=== PATIENT | female | born 1995 | race Caucasian/White ===

== ENCOUNTER → 2018-04-02 14:07 | Outpatient (CLI) | payer OTHER, MEDICAID, SELFPAY ==
--- NOTE | 2018-04-02 14:08 | DI.US.S_ITS ---
PROCEDURE: US OB >= 14 WEEKS FETUS INDICATIONS: 20 WEEK ANATOMIC SURVEY OUTSIDE/PRIOR DATING DATA: Last menstrual period (LMP): Unknown. LMP-based estimated date of delivery (ARNULFO): N./A.. First dating scan (date and location): 02/10/2018. Estimated date of delivery (ARNULFO) from first dating scan: 08/13/2018. TECHNIQUE: Real-time scanning was performed of the fetus, with image documentation and biometric measurements. Endovaginal scanning: Not required COMPARISON: None. FINDINGS: General: A single living intrauterine gestation is present. Presentation: Breech. Placenta: Placental position is anterior, without previa. Amniotic fluid index: 13.9 cm, normal range is 5-24 cm. heart rate: 137 beats per minute. Maternal cervical canal: 3.2 cm long. Normal lower limit is 2.5 cm. biometrics: Biparietal diameter: 20 weeks one day Head circumference: 20 weeks 5 days Abdominal circumference: 19 weeks 6 days Femur length: 20 weeks one day Estimated gestational age from initial scan: 21.0 weeks Composite gestational age from present scan: 20 weeks 2 days Estimated weight and percentile: 330 g at the 9th percentile Measurement variability for biometric dating: +/- 7 days from 14 weeks to 15 weeks 6 days gestation, +/- 10 days from 16 weeks to 21 weeks 6 days gestation, +/- 2 weeks from 22 weeks to 27 weeks 6 days gestation, +/- 3 weeks for 28 weeks gestation or later. weight reference: 4500 g or EFW >90/95% is considered macrosomia or large for gestational age. EFW <10% is small for gestational age. EFW 5% or less is considered intra-uterine growth restriction. Anatomic survey: Neuro: Ventricles are non-dilated at less than 10 mm. Cisterna magna is normal at 3-11 mm. Cerebellum is normal in size and morphology. Nuchal skin fold: Normal at less than 6 mm between 14-21 weeks gestational age. Face: Nose and lips, facial profile are normal. Spine: No evidence for spina bifida. Heart: 4-chambered heart and outflow tracts are not well seen Diaphragm: Diaphragm is intact. Stomach: Left-sided stomach is present. Kidneys: No hydronephrosis. Normal is less than 5 mm in 2nd trimester, less than 7 mm in 3rd trimester. Cord: 3-vessel cord has orthotopic insertion. Bladder: Normal in size. Extremities: All 4 extremities identified. IMPRESSION: 1. Single, live intrauterine gestation in breech position showing composite gestational age of 20 weeks 2 days. anatomy appears normal except the 4 chamber heart and cardiac outflow tracts are not well seen. There is mild maternal hydronephrosis in the right kidney. Dictated by: Tyson Nichols M.D. on 04/02/2018 at 15:15 Approved by: Tyson Nichols M.D. on 04/02/2018 at 15:20
== END ==
PROVIDERS: Visit Provider Specialist
DX: Z34.92 Encounter for supervision of normal pregnancy, unspecified, second trimester (principal); Z3A.20 20 weeks gestation of pregnancy
CPT/HCPCS: 76811

== ENCOUNTER → 2018-06-02 11:41 | Outpatient (CLI) | payer OTHER, MEDICAID, SELFPAY ==
[2018-06-02 13:11] LABS: Hematocrit 33.7 % (36-46); Hemoglobin 11.4 g/dL (12.0-16.0)
[2018-06-02 14:01] LABS: GTT (PREG) 1 Hour PP 50gm Dose 138 mg/dL (76-139)
== END ==
PROVIDERS: Visit Provider Specialist
DX: Z3A.29 29 weeks gestation of pregnancy (principal)
CPT/HCPCS: 36415; 82950; 85014; 85018

== ENCOUNTER 2018-07-15 17:34 | Observation (INO) | payer OTHER, MEDICAID, SELFPAY ==
[2018-07-15 19:06] LABS: Bacteria Urine None Seen; RBC Urine None Seen (0-5/HPF)
[2018-07-15 19:08] LABS: Appearance Urine UA CLEAR; Bilirubin Urine UA NEGATIVE (NEGATIVE); Color Urine UA YELLOW; Glucose Urine UA NEGATIVE (Normal); Ketones Urine UA NEGATIVE (NEGATIVE); Leukocyte Esterase Urine UA 1+ (NEGATIVE); Nitrite Urine UA Negative (Negative); Occult Blood Urine UA NEGATIVE (Negative); Protein Urine UA NEGATIVE (Negative); Urobilinogen Urine UA 0.2 E.U./dL (0.2)
[2018-07-15 19:22] LABS: Culture Indicated Urine Cult Not Indicated; Squamous Epithelial Cell Urine 5-10 /HPF; WBC Urine 5-10/HPF (0-5/HPF)
[2018-07-15] MEDS: ZOLPIDEM 5 MG TABLET PO (20:28)
[2018-07-15] MEDS: NIFEdipine 30 MG TAB ER PO (20:28)
== END 2018-07-15 20:30 | disposition home or self-care (01) ==
PROVIDERS: Admitting Provider Specialist; Visit Provider Specialist
DX: O60.03 Preterm labor without delivery, third trimester (principal); Z3A.35 35 weeks gestation of pregnancy
CPT/HCPCS: 59025; 59050; 81001; G0378; G0379

== ENCOUNTER 2018-07-18 18:54 | Observation (INO) | payer OTHER, MEDICAID, SELFPAY ==
[2018-07-18] MEDS: NIFEdipine 30 MG TAB ER PO (19:36)
--- NOTE | 2018-07-19 08:14 | PM.OBTRLD ---
Visit Information Visit Information Date of evaluation: 07/18/18 Primary OB Provider: Su Jimenez Reason for Evaluation: Yes rule out labor Vital Signs Vital Signs: Blood pressure 123/82, pulse of 95, temperature 96.8? Review of Systems Review of Systems Patient comes in complaining of cramping that is been consistent for last 3 days getting somewhat stronger. She was evaluated and treated for possible labor with nifedipine earlier this week. She now also is concerned about leaking of fluid. She has noted good movement. No signs or symptoms of preeclampsia. All systems reviewed & are unremarkable except as noted in HPI and below Evaluation Evaluation Baseline heart rate: 125 Variability: Moderate (11-25) monitor accelerations: Present monitor decelerations: Absent Contraction Frequency (minutes): 5 Uterine Contraction Intensity: Mild Category of Tracing: I Cervical dilation (cm): 0 Cervical effacement (%): 70 station: -2 Non-invasive Membranes Rupture Test: negative Diagnosis, Plan/Disposition Final Diagnosis (1) 35 weeks gestation of : Current Visit: No Status: Acute (2) Encounter for supervision of other normal , third trimester: Current Visit: No Status: Acute Plan/Disposition Plan: Patient received additional doses of nifedipine. Her symptoms improved and she was reassured she is not leaking fluid. She was sent home to be followed up at her routine OB appointment.
[2018-07-19 13:03] LABS: Strep Grp B PCR NEG for Grp B Strep
== END 2018-07-18 20:40 | disposition home or self-care (01) ==
PROVIDERS: Admitting Provider Specialist; Visit Provider Specialist
DX: O60.03 Preterm labor without delivery, third trimester (principal); Z3A.35 35 weeks gestation of pregnancy
CPT/HCPCS: 59025; 59050; 84112; 87653; G0378; G0379

== ENCOUNTER → 2018-07-23 15:46 | Outpatient (CLI) | payer OTHER, MEDICAID, SELFPAY ==
[2018-07-24 12:15] LABS: Strep Grp B PCR NEG for Grp B Strep
== END ==
PROVIDERS: Visit Provider Specialist
DX: Z3A.36 36 weeks gestation of pregnancy (principal)
CPT/HCPCS: 87653

== ENCOUNTER → 2018-07-30 11:01 | Outpatient (CLI) | payer OTHER, MEDICAID, SELFPAY ==
--- NOTE | 2018-07-30 11:35 | PM.OBTRLD ---
Visit Information Visit Information Date of evaluation: 07/30/18 Primary OB Provider: Su Jimenez Reason for Evaluation: Yes non-stress test Comments/Additional reasons for admission: Possible deceleration heard on OB visit Evaluation Evaluation Baseline heart rate: 120 Variability: Marked (>25) monitor accelerations: Present monitor decelerations: Absent Contraction Frequency (minutes): 0 Diagnosis, Plan/Disposition Final Diagnosis (1) Encounter for supervision of other normal , third trimester: Current Visit: No Status: Acute (2) 37 weeks gestation of : Current Visit: Yes Status: Acute Plan/Disposition Plan: Patient was discharged home to follow up at her routine OB appointment
== END | disposition home or self-care (01) ==
LOC: LABOR 11:18 → OB 08-03 07:33
PROVIDERS: Visit Provider Specialist
DX: Z34.83 Encounter for supervision of other normal pregnancy, third trimester (principal); Z3A.37 37 weeks gestation of pregnancy
CPT/HCPCS: 59025; G0378; G0379

== ENCOUNTER 2018-08-03 13:19 | Observation (INO) | payer OTHER, MEDICAID, SELFPAY | END 2018-08-03 16:40 | disposition home or self-care (01) | PROVIDERS: Admitting Provider Specialist; Visit Provider Specialist | DX: O26.23 Pregnancy care for patient with recurrent pregnancy loss, third trimester (principal); Z3A.37 37 weeks gestation of pregnancy | CPT/HCPCS: 59025; 59050; G0378; G0379 ==

== ENCOUNTER 2018-08-06 13:19 | Outpatient (CLI) | payer OTHER, MEDICAID, SELFPAY ==
--- NOTE | 2018-08-06 14:06 | PM.OBTRLD ---
Visit Information Visit Information Date of evaluation: 08/06/18 Reason for Evaluation: Yes non-stress test Comments/Additional reasons for admission: Patient complains of decreased movement Evaluation Evaluation Baseline heart rate: 120 Variability: Moderate (11-25) monitor accelerations: Present monitor decelerations: Absent Category of Tracing: I Diagnosis, Plan/Disposition Final Diagnosis (1) Encounter for supervision of other normal , third trimester: Current Visit: No Status: Acute (2) 38 weeks gestation of : Current Visit: No Status: Acute (3) Decreased movement affecting management of mother, antepartum: Current Visit: No Status: Acute Plan/Disposition Plan: Reactive nonstress test patient reassured. She will keep her follow-up appointment. Precautions reviewed with the patient.
== END 2018-08-06 13:56 | disposition home or self-care (01) ==
LOC: OB 08-10 08:34
PROVIDERS: Visit Provider Specialist
DX: O36.8130 Decreased fetal movements, third trimester, not applicable or unspecified (principal); Z3A.38 38 weeks gestation of pregnancy
CPT/HCPCS: 59025; G0378; G0379

== ENCOUNTER 2018-08-18 06:50 | Inpatient (IN) | payer OTHER, MEDICAID, SELFPAY ==
[2018-08-18] MEDS: LACTATED RINGERS 1,000 ML 100 ML IV ×3 (07:55→18:13)
--- NOTE | 2018-08-18 08:07 | P.HPOB_ITS ---
OB HPI Date/Time Date of admission: 08/18/18 Date Patient Seen: 08/18/18 Time Patient Seen: 07:58 History of Present Condition Chief complaint: induction : 4 Para: 0 Estimated Date of Delivery: 08/18/18 Estimated Gestational Age (weeks): 40 Narrative: Lizzette Boyd is a 23 year old female with mildly elevated blood pressures, mild headaches, prolonged prodromal labor here for induction Indications Indication for induction OB: maternal discomfort History of Present care: good care, initiated at week # (14), number of visits (11) and pounds weight gain (26) Dating criteria: LMP confirmed by 1st trimester US Ultrasounds: normal mid trimester US Obstetrical complications: none Medical complications: respiratory (Asthma) and neurological (Migraines) Preadmission Labs Blood type: O (+) positive -: Antibody screen: negative, GBS status: negative, HBsAG: negative, HIV: negative, HSV 1: negative, HSV 2: negative and RPR/VDLR: negative -: Chlamydia screen: not detected and Gonorrhea screen: not detected -: Rubella: not immune HCAB: negative PAP: Normal Quad screen: Normal Fasting blood glucose: 138 Prior (ies) History: Three SABs Evaluation Evaluation Baseline heart rate: 150 Variability: Moderate (11-25) monitor accelerations: Present monitor decelerations: Absent Contraction Frequency (minutes): 0 Category of Tracing: I Cervical dilation (cm): 3 Cervical effacement (%): 80 station: -2 [facility] Medical History Asthma (Chronic) Migraine headache (Chronic) Meds Home Medications Medication Instructions Recorded Confirmed Type Double Electric Breast Pump #1 ea 06/18/18 06/18/18 Rx omeprazole 20 mg capsule,delayed 20 mg PO DAILY #30 cap 06/21/18 Rx release vits no.124-ferrous fum 1 tab PO DAILY #100 tab 06/21/18 Rx 27 mg iron-folic acid 800 mcg tablet albuterol sulfate HFA 90 1 puff INHALATION Q4-6H PRN #18 06/29/18 Rx mcg/actuation aerosol inhaler gram acetaminophen 300 mg-codeine 30 mg 1 tab PO Q4-6H PRN #30 tab 07/09/18 Rx tablet amoxicillin 500 mg-potassium 1 tab PO BID #20 tab 07/09/18 Rx clavulanate 125 mg tablet zolpidem 5 mg tablet 5 mg PO BEDTIME PRN #7 tab 08/06/18 Rx Allergies Allergy/AdvReac Type Severity Reaction Status Date / Time adhesive Allergy Verified 07/15/18 19:45 azithromycin [From Zithromax] Allergy Verified 07/15/18 19:45 beeswax Allergy Verified 07/15/18 19:45 clindamycin Allergy Verified 07/15/18 19:45 latex Allergy Verified 07/15/18 19:45 Review of Systems Review of Systems Patient complains of mild headache but no scotomata or epigastric pain. Good movement. No rupture of membranes. Irregular contractions All systems reviewed & are unremarkable except as noted in HPI and below Exam Vital Signs (past 8 hours): Blood pressure 124/71, pulse of 100, temperature 36.2? Narrative Exam Narrative: HEENT exam within normal limits. Lungs are clear to auscultation percussion. Heart is regular rate and rhythm no S3-S4 or murmurs. Abdomen is gravid, nontender. Extremities with trace edema and nontender. DTRs are normal. Assessment and Plan (1) 40 weeks gestation of : Current visit: Yes Status: Acute Patient is at term, uncomfortable, mild increase in blood pressure who is here for induction with Pitocin. Patient is going to request an epidural. She is group B strep negative. She is rubella nonimmune so needs a rubella vaccine prior to discharge.
[2018-08-18] MEDS: OXYTOCIN PREMIX 30 UNIT/500 ML PLAST..BAG IV (08:15)
[2018-08-18 08:29] VITALS: BP 124/71
[2018-08-18 08:41] LABS: Add Manual Diff / Slide Review NO; Basophils Percent Auto 0.9 % (0-2); Eosinophils Percent Auto 0.5 % (2-4); Hematocrit 35.2 % (36-46); Hemoglobin 11.8 g/dL (12.0-16.0); Lymphocytes Percent Auto 21.1 % (25-40); Mean Corpuscular HGB Conc 33.4 % (30-36); Mean Corpuscular Hemoglobin 28.9 PG (26-34); Mean Corpuscular Volume 86.6 fL (80-100); Monocytes Percent Auto 3.1 % (3-14); Neutrophils Absolute Auto 7300 /uL (3000-5900); Neutrophils Percent Auto 74.4 % (50-75); Platelet Count 227 X10^3/uL (150-400); Red Blood Cell Count 4.06 X10^6/uL (4.0-5.2); Red Cell Distribution Width 14.1 % (11.6-14.8); White Blood Cell Count 9.8 X10^3/uL (4.5-11.0)
--- NOTE | 2018-08-18 20:43 | PM.OBPRVD ---
Delivery date: 08/18/18 Intrapartal events: None Induction method: per pitocin protocol Delivery monitor: external FHT and external uterine Route of delivery: Laceration description: Periurethral - 1st Degree Estimated blood loss (mL): 200 Anesthesia type: Epidural Narrative: Patient arrived on Labor and delivery for Pitocin induction. Maternal discomfort and slightly increased blood pressure. Pitocin was begun and she received an epidural catheter for pain control. She was a run for clear fluid. heart rate category 1 to category 2 throughout labor. Patient delivered spontaneously, over an intact perineum. There was a compound presentation and a nuchal cord. The viable male infant was placed on maternal abdomen and after the cord stopped pulsating the cord was clamped cut and cord bloods obtained. The placenta delivered spontaneously, intact, with 3 vessels. There were no cervical or vaginal tears. There was a first-degree right periurethral tear that did not require suturing. Baby weighed 6 lb 7 oz, 2926 g Baby 1: Infant gender: Male Presentation: vertex position: Right Occiput Anterior Placenta delivery description: Spontaneous cord vessel description: Nuchal Cord score (1 min): 8 score (5 min): 9 Plan for aftercare: Routine care
[2018-08-19 07:18] LABS: Hematocrit 33.2 % (36-46)
--- NOTE | 2018-08-19 08:07 | P.PNOB_ITS ---
Subjective - OB Interval history: day 1. Patient denies headache, scotomata and epigastric pain. She is ambulatory in urinating without difficulty. Patient comments: pain well controlled baby status: doing well feeding status: exclusively breast feeding Date Patient Seen: 08/19/18 Time Patient Seen: 08:05 Exam Vital Signs (past 8 hours): Blood pressure 117/71, pulse of 111, temperature 97.4? Narrative Exam Narrative: Abdomen was soft, nontender. Uterus is firm, at U, nontender. Mild lochia. Extremities without edema and nontender. Objective Labs Result Diagrams: 08/19/18 06:35 Labs: Laboratory Results - last 24 hr 08/18/18 08/18/18 08/19/18 07:54 07:54 06:35 WBC 9.8 RBC 4.06 Hgb 11.8 L 11.0 L Hct 35.2 L 33.2 L MCV 86.6 MCH 28.9 MCHC 33.4 RDW 14.1 Plt Count 227 Neut % (Auto) 74.4 Lymph % (Auto) 21.1 L [place] % (Auto) 3.1 Eos % (Auto) 0.5 L Baso % (Auto) 0.9 Neut # (Auto) 7300 H Blood Type O Positive Antibody Screen Negative Assessment & Plan (1) 40 weeks gestation of : Status: Acute Current Visit: Yes (2) Vaginal delivery: Status: Acute Current Visit: Yes Plan day: 1 plan OB: routine care Time Spent With Patient Total time spent is greater than 50% in coordination of care (as documented) at patient's floor/unit and/or counseling patient: less than 15 minutes
[2018-08-19] MEDS: DOCUSATE 250 MG CAPSULE PO (09:04)
[2018-08-19] MEDS: LANOLIN OINT 7 GM 1 APPLIC TOP (09:05)
[2018-08-19 09:35] VITALS: BP 117/70; PULSE 77; RESP 16; TEMP 37.1
--- NOTE | 2018-08-19 17:12 | PM.OBDS.1 ---
Discharge Providers Date of admission: 08/18/18 06:50 Consults: 08/18/18 07:03 Consult to Anesthesiology Urgent Comment: Consulting Provider: Anesthesiologist Reason for consultation: epidural Has provider been notified: No 08/18/18 20:55 Consult to [employer] Routine Comment: Discharge provider: Su Jimenez MD Discharge Date: 08/19/18 Summary Date Patient Seen: 08/19/18 Time Patient Seen: 17:14 Hospital Course: Patient arrived on Labor and delivery for induction. She was started on Pitocin. She received an epidural catheter for pain control. She had a spontaneous vaginal delivery without tears. She did well she had no signs or symptoms of preeclampsia. Her abdomen was soft, nontender. Uterus was firm, at U, nontender. Mild lochia. Extremities without edema and nontender. Peripartum Data Infant Delivery Method: Natural Vaginal Laceration description: None Procedures: Pitocin induction, epidural catheter, spontaneous vaginal delivery complications: none 1: Gender: Male Disposition of : home Discharge Diagnosis (1) 40 weeks gestation of : Status: Acute (2) Vaginal delivery: Status: Acute Status at Discharge Functional status at discharge: independent ambulation Overall status at discharge: patient is progressing back to baseline Time Spent with Patient Total time spent providing and/or coordinating discharge services: Less than 30 minutes Objective Labs Result Diagrams: 08/19/18 06:35 Labs: Laboratory Results - last 24 hr 08/19/18 06:35 Hgb 11.0 L Hct 33.2 L Discharge Plan Discharge Plan Patient Disposition: Home Discharge Med Rec/Prescriptions Prescriptions: No Action vit no.[id number] [ Vitamin] 27 mg iron- 800 mcg tablet 1 tab PO DAILY Qty: 100 RF: 3 Double Electric Breast Pump Qty: 1 RF: 0 albuterol sulfate 90 mcg/actuation HFA aerosol inhaler 1 puff INHALATION Q4-6H PRN (Reason: asthma) Qty: 18 RF: 1 Follow up/Referrals: Su Jimenez MD [Physician] - 09/29/18 12:00 am (needs time still) Provider Discharge Instructions Diet: Regular Skin/Wound/Dressing Care Report to your healthcare provider any signs of infection, such as:: chills, fever and increased pain Visit Report/Discharge Packet Visit Report Forms: Stroke Signs & Symptoms Discharge Data Attending Provider: Su Jimenez Admit Date/Time: 08/18/18 06:50
[2018-08-19 17:54] VITALS: BP 112/62; PULSE 89; RESP 16; TEMP 36.9
[2018-08-19] MEDS: MEASLES,MUMPS,RUBELLA VACC/PF 0.5 ML VIAL SUBCUT (18:25)
[2018-08-19 19:50] VITALS: BP 112/62; PULSE 89; RESP 16; TEMP 36.9
== END 2018-08-19 18:45 | disposition home or self-care (01) | DRG 560 ==
PROVIDERS: Admitting Provider Specialist; Visit Provider Specialist
DX: O26.813 Pregnancy related exhaustion and fatigue, third trimester (principal); Z3A.40 40 weeks gestation of pregnancy; Z37.0 Single live birth; O69.81X0 Labor and delivery complicated by cord around neck, without compression, not applicable or unspecified; O32.6XX0 Maternal care for compound presentation, not applicable or unspecified; O71.82 Other specified trauma to perineum and vulva
CPT/HCPCS: 01967; 36415; 59050; 59409; 85014; 85018; 85025; 86850; 86900; 86901; G0379; J2590; J3010

== ENCOUNTER 2019-02-04 12:23 | Emergency (ER) | payer OTHER, MEDICAID, SELFPAY ==
[2019-02-04 12:28] VITALS: BP 121/70; PULSE 76; RESP 18; TEMP 36.7; O2SAT 100
[2019-02-04] MEDS: IBUPROFEN 400 MG TABLET 800 MG PO (12:36)
--- NOTE | 2019-02-04 15:48 | ED_ITS ---
HPI - Skin/Abscess/Foreign Bdy General Chief complaint: Skin/Abscess/Foreign Body Stated complaint: mastitis needed drained Time Seen by Provider: 02/04/19 15:47 Source: patient and family (/mother) Mode of arrival: ambulatory Limitations: no limitations History of Present Illness HPI narrative: 23-year-old female comes to the emergency department with complaint of mastitis and concern for abscess. Patient has breast-feeding but switched to exclusive pumping of breast milk about 3 weeks ago. Patient dev eloped mastitis in the last week, she was started on dicloxacillin and she did not really have any improvement of symptoms. She tried to get into contact with her OBGYN again and was referred to the ER if she was not improving. She is not having fevers lately. Pain has been increasing. She has got increasing darkness and redness over the area of mastitis. She has had very little output while pumping breast milk. Patient denies any other past medical history other than a prior episode of mastitis about 3 months ago that caused her to be admitted to [facility]. She was on IV antibiotics and resolved after several hospital day stay. She does not know the name. Patient is al lergic to clindamycin and gets hives as well as azithromycin. Related Data Home Medications Medication Instructions Recorded Confirmed etonogestrel [Nexplanon] 68 mg SUBDERMAL .ONCE 02/04/19 02/04/19 Previous Rx's Medication Instructions Recorded Double Electric Breast Pump #1 ea 06/18/18 albuterol sulfate HFA 90 1 puff INHALATION Q4-6H PRN #18 06/29/18 mcg/actuation aerosol inhaler gram ibuprofen 600 mg tablet 600 mg PO Q6H PRN #90 tab 09/07/18 dicloxacillin 500 mg capsule 500 mg PO QID #40 cap 01/31/19 oxycodone 5 mg PO Q4-6H PRN #15 tab 02/04/19 sulfamethoxazole-trimethoprim 1 tab PO BID #20 tab 02/04/19 [Bactrim DS] Allergies Allergy/AdvReac Type Severity Reaction Status Date / Time adhesive Allergy Mild Hives Verified 02/04/19 12:33 azithromycin [From Zithromax] Allergy Mild Hives Verified 02/04/19 12:33 beeswax Allergy Mild Hives Verified 02/04/19 12:33 clindamycin Allergy Mild Hives Verified 02/04/19 12:33 latex Allergy Hives Verified 02/04/19 12:33 Review of Systems Review of Systems ROS Unobtainable: All systems reviewed & are unremarkable except as noted in HPI and below Constitutional Reports chills, Denies fever(s), Denies lethargy and Denies weakness Cardiovascular Reports chest pain (Breast pain), Denies dyspnea and Denies dyspnea on exertion Respiratory Denies cough, Denies dyspnea, Denies dyspnea on exertion and Denies wheezing Gastrointestinal Gastrointestinal: Denies abdominal pain, Denies change in bowel habits, Denies diarrhea, Denies nausea and Denies vomiting Integumentary/Breasts Reports as per HPI, Reports breast swelling, Reports breast skin changes, Reports breast pain, Denies breast mass and Reports erythema Neurologic Denies weakness Allergic/Immunologic Denies wheezing [facility] Medical History Asthma (Chronic) Migraine headache (Chronic) Social History Smoking Status: Never smoker Social History Smoking Status: Never smoker Exam Narrative Exam Narrative: GENERAL: Alert and oriented x three, well-nourished, well- appearing female in moderate distress HEENT: Head normocephalic, atraumatic, EOMI, pupils reactive, face symmetric, moist mucous membranes NECK: Supple, full range of motion CARDIOVASCULAR: Regular rate and rhythm without murmurs, rubs or gallops. RESPIRATORY: Breath sounds equal bilaterally, no wheezes rales or rhonchi. ABDOMEN: Soft, nontender. Normoactive bowel sounds all 4 quadrants. No guarding or rebound, rigidity, no mass : No CVA tenderness EXTREMITIES: Normal range of motion, no clubbing or edema. Neurovascularly intact NEUROLOGICAL: Cranial nerves II through XII grossly intact. Moving all extremities SKIN: Warm, dry, no petechiae, patient's right breast has a problem 5 cm area of erythema with a centralized location about 3 cm that is very soft and fluctuant. There is no montgomery for clear area of drainage. Patient is quite tender. Initial Vital Signs Initial Vital Signs: Vital Signs Temperature 98.1 F 02/04/19 12:28 Pulse Rate 76 02/04/19 12:28 Respiratory Rate 18 02/04/19 12:28 Blood Pressure 121/70 02/04/19 12:28 Pulse Oximetry 100 02/04/19 12:28 Course Orders Ordered: ED Orders 02/04/19 15:45 Basic Metabolic Panel Stat Bilirubin Total Stat Complete Blood Count AUTO DIFF Stat Lactate (Lactic Acid) Stat Partial Thromboplastin Time Stat Prothrombin Time INR Stat 02/04/19 15:57 US breast RT limited Stat 02/04/19 16:37 Blood Culture Stat 02/04/19 18:09 US breast asp Stat 02/04/19 19:32 Wound Culture and Gram Stain Stat Discontinued Medications Sodium Chloride (Normal Saline 0.9%) 1,000 mls @ 1,000 mls/hr IV BOLUS PRN PRN Reason: Fluid replacement Last Infusion: 02/04/19 18:30 Dose: 0 mls/hr Admin: 02/04/19 16:33 Dose: 1,000 mls/hr Vancomycin HCl 1,250 mg/ (Sodium Chloride) 250 mls @ 250 mls/hr IV NOW ONE Stop: 02/04/19 16:05 Last Infusion: 02/04/19 18:01 Dose: 0 mls/hr Admin: 02/04/19 16:37 Dose: 250 mls/hr Ibuprofen (Advil) 800 mg PO NOW ONE Stop: 02/04/19 12:35 Last Admin: 02/04/19 12:36 Dose: 800 mg Ketorolac Tromethamine (Toradol) 30 mg IV NOW ONE Stop: 02/04/19 15:59 Last Admin: 02/04/19 16:34 Dose: 30 mg Oxycodone/Acetaminophen (Percocet 5/325) 1 tab PO NOW ONE Stop: 02/04/19 19:38 Last Admin: 02/04/19 19:39 Dose: 1 tab Vital Signs - 8 hr 02/04/19 12:28 02/04/19 16:46 02/04/19 18:54 Temperature 98.1 F Pulse Rate 76 75 79 Respiratory Rate 18 17 18 Blood Pressure 121/70 Blood Pressure [Right Arm] 114/62 112/68 Pulse Oximetry 100 97 97 MDM - Skin/Abscess/Foreign Bdy Lab Data Attestation: I reviewed the patient's lab results. Result diagrams: 02/04/19 15:45 02/04/19 15:45 Lab Results 02/04/19 02/04/19 02/04/19 Range/Units 15:45 15:45 15:45 WBC 9.2 (4.5-11.0) X10^3/uL RBC 4.52 (4.0-5.2) X10^6/uL Hgb 11.8 L (12.0-16.0) g/dL Hct 35.9 L (36-46) % MCV 79.4 L (80-100) fL MCH 26.0 (26-34) PG MCHC 32.8 (30-36) % RDW 14.2 (11.6-14.8) % Plt Count 340 (150-400) X10^3/uL Neut % (Auto) 60.9 (50-75) % Lymph % (Auto) 30.0 (25-40) % Kent % (Auto) 6.7 (3-14) % Eos % (Auto) 1.7 L (2-4) % Baso % (Auto) 0.7 (0-2) % Neut # (Auto) 5600 (6166-0963) /uL Lymph # (Auto) 2800 (0075-0435) /uL Kent # (Auto) 600 (0-900) /uL Eos # (Auto) 200 (0-450) /uL Baso # (Auto) 100 (0-100) /uL PT 12.0 (10.1-12.7) SECONDS INR 1.0 (0.9-1.3) APTT 31 (26.4-36.2) SECONDS Sodium 139 (137-145) mmol/L Potassium 3.8 (3.4-5.1) mmol/L Chloride 102 (98-107) mmol/L Carbon Dioxide 28 (22-32) mmol/L BUN 11 (7-17) mg/dL Creatinine 0.60 (0.52-1.04) mg/dL Estimated GFR > 60.0 (>60) mL/min BUN/Creatinine Ratio 18.3 (6-22) Glucose 94 (70-100) mg/dL Lactate (0.7-2.1) mmol/L Calcium 9.5 (8.4-10.2) mg/dL Total Bilirubin 0.2 (0.2-1.3) mg/dL 02/04/19 Range/Units 15:45 WBC (4.5-11.0) X10^3/uL RBC (4.0-5.2) X10^6/uL Hgb (12.0-16.0) g/dL Hct (36-46) % MCV (80-100) fL MCH (26-34) PG MCHC (30-36) % RDW (11.6-14.8) % Plt Count (150-400) X10^3/uL Neut % (Auto) (50-75) % Lymph % (Auto) (25-40) % Kent % (Auto) (3-14) % Eos % (Auto) (2-4) % Baso % (Auto) (0-2) % Neut # (Auto) (4347-3669) /uL Lymph # (Auto) (5586-2202) /uL Kent # (Auto) (0-900) /uL Eos # (Auto) (0-450) /uL Baso # (Auto) (0-100) /uL PT (10.1-12.7) SECONDS INR (0.9-1.3) APTT (26.4-36.2) SECONDS Sodium (137-145) mmol/L Potassium (3.4-5.1) mmol/L Chloride (98-107) mmol/L Carbon Dioxide (22-32) mmol/L BUN (7-17) mg/dL Creatinine (0.52-1.04) mg/dL Estimated GFR (>60) mL/min BUN/Creatinine Ratio (6-22) Glucose (70-100) mg/dL Lactate 0.9 (0.7-2.1) mmol/L Calcium (8.4-10.2) mg/dL Total Bilirubin (0.2-1.3) mg/dL Imaging Data US right breast: Radiologist's impression: [address] [address] Ultrasound Report Signed Patient: Lizzette Boyd MARY ALICE#: [id number] : 1995Acct:[id number] Age/Sex: 23 / FDate of Service: 02/04/19 Loc: ED Accession Number: [id number] Procedure: US breast RT limited Ordering Provider: Lois Alfredo D.O. PROCEDURE: US BREAST RT LIMITED COMPARISON: None. INDICATIONS: Mastitis with concern for abscess RU, mom pumping breastmilk TECHNIQUE: Targeted real time mcqueen scale and Doppler ultrasound of the right breast near 10:00 position was performed, which included the area of clinical concern indicated by the patient as being erythematous and tender to palpation. FINDINGS: There is an underlying 4.9 x 4.8 x 2.2 cm irregular indistinct fluid collection with mobile internal echogenic debris in the right breast at 10:00 position 5 cm from nipple, correlating with the site of patient reported tenderness. This fluid collection demonstrates mild peripheral vascularity on Doppler ultrasound and extension to the overlying skin surface. IMPRESSION: 4.9 cm irregular fluid collection in the right breast at 10:00 position 5 cm fr om the nipple concerning for developing abscess/phlegmon. Clinical correlation recommended. An ultrasound-guided drainage can be performed if clinically indicated. These findings and recommendations were discussed with the referring provider Dr. Lois Alfredo by [facility] radiologist Dr. Teo Dasilva at approximately 5:30 PM by phone and by [facility] radiologist Dr. Chandan Chen at approximately 6:00 PM on 02/04/2019 in person. Dictated by: Chandan Chen M.D. on 02/04/2019 at 18:17 Approved by: Chandan Chen M.D. on 02/04/2019 at 18:26 MDM Narrative Medical decision making narrative: Spoke with Dr. Jimenez, recommends surgery to evaluate. Dr. Marion consulted, recommends radiology IR if available, could aspirate, antibiotics and follow up. Spoke with Dr. Dasilva from radiology. He discussed with Dr. hCen who does breast radiology. Dr. Chen came by department and evaluated patient and did US guided aspiration. Only small amount mostly of bloody fluid. Even with the largest needle and he felt that it was more phlegmon than true abscess at this time but would suggest patient continues warm compress and antibiotics and likely in the next week could have repeat ultrasound and if improving would be able to attempt aspiration again. He would recommend serial aspirations as the area becomes more abscess like. Patient could either do this through Dr. Jimenez who could order ultrasounds for her or through the breast Center. I gave patient both options and give her the contact information for the breast center. I did ask her to return in 12 hours for recheck. We reviewed her medications, plan for her to continue to pump on both sides. Her infant does not like the milk from that side and told that she can't up it if she prefers. I did also review all of her medications in infant risk INR appropriate for . We also discussed if she is taking oxycodone to make sure that she is with someone or monitored so that she does not fall asleep with the infant. The patient's mother is also at bedside and all this information was shared with her also. Discharge Plan Departure Patient Disposition: Home Clinical Impression: Abscess of right breast, Mastitis Discharge Date/Time: 02/04/19 19:55 Interventions: ED Discharge Assessment Last Done: 02/04/19 19:46 Activity Restrictions/Additional Instructions: Return in 12 hours for recheck and possible repeat dose of IV antibiotics. Follow-up with the Breast Center on Thursday, call for an appointment. The number is [phone] or [phone], it is located in [place]. Stopped your current antibiotic dicloxacillin and start Bactrim today. Continue to pump regularly, continue warm compresses to the affected area, continue with massage or hand expression as tolerated to the area of abscess. Continue with ibuprofen 800 mg every 8 hours as needed, you may also take Tylenol up to a 1000 mg every 8 hours as needed for pain. if these are not adequate for pain relief you may take oxycodone 1 tablet every 4-6 hours as needed for breakthrough pain. Return to the emergency department for fevers greater than 100.4, rapidly worsening swelling, redness that is spreading, rapidly increasing pain, new shortness of breath, lightheadedness or passing-out, persistent vomiting or other new or concerning symptoms.0 Prescriptions: New sulfamethoxazole-trimethoprim [Bactrim DS] 800-160 mg tablet 1 tab PO BID Qty: 20 RF: 0 oxycodone 5 mg tablet 5 mg PO Q4-6H PRN (Reason: pain) Qty: 15 RF: 0 No Action ibuprofen 600 mg tablet 600 mg PO Q6H PRN (Reason: pain) Qty: 90 RF: 0 Double Electric Breast Pump Qty: 1 RF: 0 albuterol sulfate 90 mcg/actuation HFA aerosol inhaler 1 puff INHALATION Q4-6H PRN (Reason: asthma) Qty: 18 RF: 1 dicloxacillin 500 mg capsule 500 mg PO QID Qty: 40 RF: 0 Nexplanon 68 mg Implant 68 mg Subdermal .ONCE RF: 0 Referrals: Su Jimenez MD [Primary Care Provider] -
--- NOTE | 2019-02-04 15:57 | DI.US.S_ITS ---
PROCEDURE: US BREAST RT LIMITED COMPARISON: None. INDICATIONS: Mastitis with concern for abscess RU, mom pumping breastmilk TECHNIQUE: Targeted real time mcqueen scale and Doppler ultrasound of the right breast near 10:00 position was performed, which included the area of clinical concern indicated by the patient as being erythematous and tender to palpation. FINDINGS: There is an underlying 4.9 x 4.8 x 2.2 cm irregular indistinct fluid collection with mobile internal echogenic debris in the right breast at 10:00 position 5 cm from nipple, correlating with the site of patient reported tenderness. This fluid collection demonstrates mild peripheral vascularity on Doppler ultrasound and extension to the overlying skin surface. IMPRESSION: 4.9 cm irregular fluid collection in the right breast at 10:00 position 5 cm from the nipple concerning for developing abscess/phlegmon. Clinical correlation recommended. An ultrasound-guided drainage can be performed if clinically indicated. These findings and recommendations were discussed with the referring provider Dr. Lois Alfredo by [facility] radiologist Dr. Teo Dasilva at approximately 5:30 PM by phone and by [facility] radiologist Dr. Chandan Chen at approximately 6:00 PM on 02/04/2019 in person. Dictated by: Chandan Chen M.D. on 02/04/2019 at 18:17 Approved by: Chandan Chen M.D. on 02/04/2019 at 18:26
[2019-02-04 15:59] LABS: Add Manual Diff / Slide Review NO; Basophils Absolute Auto 100 /uL (0-100); Basophils Percent Auto 0.7 % (0-2); Eosinophils Absolute Auto 200 /uL (0-450); Eosinophils Percent Auto 1.7 % (2-4); Hematocrit 35.9 % (36-46); Hemoglobin 11.8 g/dL (12.0-16.0); Lymphocytes Absolute Auto 2800 /uL (1100-4500); Mean Corpuscular HGB Conc 32.8 % (30-36); Mean Corpuscular Volume 79.4 fL (80-100); Monocytes Absolute Auto 600 /uL (0-900); Monocytes Percent Auto 6.7 % (3-14); Neutrophils Absolute Auto 5600 /uL (1500-7000); Neutrophils Percent Auto 60.9 % (50-75); Platelet Count 340 X10^3/uL (150-400); Red Blood Cell Count 4.52 X10^6/uL (4.0-5.2); Red Cell Distribution Width 14.2 % (11.6-14.8); White Blood Cell Count 9.2 X10^3/uL (4.5-11.0)
[2019-02-04 16:09] LABS: PTT Partial Thromboplastin Tim 31 SECONDS (26.4-36.2)
[2019-02-04 16:11] LABS: BUN Creatinine Ratio 18.3 (6-22); Bilirubin Total 0.2 mg/dL (0.2-1.3); Blood Urea Nitrogen 11 mg/dL (7-17); Calcium 9.5 mg/dL (8.4-10.2); Carbon Dioxide 28 mmol/L (22-32); Chloride 102 mmol/L (98-107); Estimated Glomerular Filt Rate > 60.0 mL/min (>60); Glucose 94 mg/dL (70-100); HEMOLYSIS < 15 (0-50); Potassium 3.8 mmol/L (3.4-5.1); Sodium 139 mmol/L (137-145)
[2019-02-04 16:12] LABS: Lactate (Lactic Acid) 0.9 mmol/L (0.7-2.1)
[2019-02-04] MEDS: SODIUM CHLORIDE 0.9% 1,000 ML 1000 ML IV (16:33)
[2019-02-04] MEDS: KETOROLAC 60 MG/2 ML VIAL 30 MG IV (16:34)
[2019-02-04] MEDS: VANCOMYCIN 1,250 MG in SODIUM CHLORIDE 0.9% 250 ML IV (16:37)
[2019-02-04 16:46] VITALS: BP 114/62; PULSE 75; RESP 17; O2SAT 97
--- NOTE | 2019-02-04 18:09 | DI.US.S_ITS ---
PROCEDURE: US BREAST ASP COMPARISON: [facility], , US BREAST RT LIMITED, 02/04/2019, 16:05. INDICATIONS: RIGHT BREAST ABSCESS. Breast feeding until 2-3 weeks ago. Right breast lump with associated pain and erythema x 2 weeks. Aspirate fluid. FINDINGS/TECHNIQUE/PROCEDURAL NARRATIVE: An aspiration was performed for the concerning palpable painful indistinct irregular shaped fluid collection with internal mobile echogenic debris located in the right breast at 10 o'clock 5 cm from the nipple. This was described on the previous ultrasound report. Witnessed informed consent was obtained, including discussion of the risks, benefits, and alternatives of to this procedure. The patient stated that she has already been taking antibiotics from her health provider and has been prescribed antibiotics by the referring emergency department physician. On physical exam, there was prominent focal swelling and erythema surrounding the raised skin surface in the upper outer quadrant of the right breast immediately overlying the previously identified fluid collection site. The skin was prepped in the usual sterile manner. A surgical cleaning solution was applied. 8 mL of 1% Lidocaine was utilized for local anesthesia. The abnormality was approached from the lateral aspect under ultrasound guidance. A 25 gauge needle was percutaneously placed into the abnormality through a single puncture site under ultrasound guidance. Once the needle was documented to be in the correct location, a fluid aspiration was attempted. No fluid could be aspirated. Subsequently, multiple needles of varying gauges (from 25 to 18 gauge) with multiple syringes were utilized to attempt aspiration of the fluid collection through the single puncture site. Less than 5 cc of opaque predominantly bloody thick gelatinous fluid with minimal internal purulent fluid was successfully aspirated. Additional purulent and serosanguinous fluid was expressed from the puncture site after application of pressure on the fluid collection by the ultrasound transducer. Post procedure ultrasound imaging demonstrates the fluid collection to be minimally smaller in size. There is decreased skin protrusion/prominence on physical exam. A skin adhesive was applied to the access site. IMPRESSION: Attempted aspiration of the fluid collection in the upper outer right breast at 10 o'clock 5 cm from the nipple was minimally successful with less than 5 cc of mixed predominantly bloody thick gelatinous fluid with minimal internal purulent fluid aspirated. There were no apparent post procedure complications. Post ultrasound imaging revealed the abnormality to be slightly smaller in size. Given that only minimal fluid could be successfully aspirated and the appearance of aspirated contents, it is likely that this fluid collection represents an evolving phlegmon with predominantly mixed blood products rather than a well-formed drainable abscess at this time. The patient is reportedly already being treated with antibiotics and being followed by her health provider; recommend continued clinical follow-up for further evaluation and management. A repeated aspiration can be attempted at a later date if clinically indicated. Aspirated fluid was sent to the pathology lab for culture and testing. Waiting for pathology results. A final report will be issued when these become available. These results and recommendations were discussed with the referring provider Dr. Lois Alfredo at approximately 7:15pm on 02/04/[address] Chen. Dictated by: Chandan Chen M.D. on 02/05/2019 at 22:34 Approved by: Chandan Chen M.D. on 02/05/2019 at 22:37
[2019-02-04 18:54] VITALS: BP 112/68; PULSE 79; RESP 18; O2SAT 97
[2019-02-04] MEDS: OXYCODONE/ACETAMINOPHEN 5/325 TABLET 1 TAB PO (19:39)
== END 2019-02-04 19:55 | disposition home or self-care (01) ==
PROVIDERS: Nurse Practitioner Family; Emergency Provider Emergency Medicine; PCP Specialist
DX: N61.1 Abscess of the breast and nipple (principal)
CPT/HCPCS: 10005; 36415; 36591; 76642; 80048; 82247; 83605; 85025; 85610; 85730; 87040; 87070; 87075; 87077; 87147; 87205; 96361; 96365; 96375; 99283; 99284; J1885

== ENCOUNTER 2019-02-05 08:11 | Emergency (ER) | payer OTHER, MEDICAID, SELFPAY ==
[2019-02-05 08:28] VITALS: BP 119/87; PULSE 86; RESP 18; TEMP 36.6; O2SAT 98; BMI 29.2
--- NOTE | 2019-02-05 08:40 | ED_ITS ---
HPI - Recheck/Abnormal Lab/Rx General Chief Complaint: Recheck/Abnormal Lab/Rx Stated Complaint: RIGHT SIDE MASITUS Time Seen by Provider: 02/05/19 08:35 Source: patient and old records reviewed Mode of arrival: ambulatory Limitations: no limitations History of Present Illness HPI narrative: Patient is a 23-year-old female who has a right breast abscess. She was seen and evaluated here yesterday he actually says it started on January 31 she was seen by her OB. She was started on dicloxacillin. Yesterday surgery was consulted along with interventional Radiology. She had an attempted I and D by Radiology which was fairly unsuccessful. Today she is overall feeling better but the redness is still there. She received IV vancomycin and started on Bactrim instead. She actually has had some improvement the redness. MD complaint: wound re-check Initial visit for: cellulitis and abscess Related Data Home Medications Medication Instructions Recorded Confirmed etonogestrel [Nexplanon] 68 mg SUBDERMAL .ONCE 02/04/19 02/04/19 Previous Rx's Medication Instructions Recorded Double Electric Breast Pump #1 ea 06/18/18 albuterol sulfate HFA 90 1 puff INHALATION Q4-6H PRN #18 06/29/18 mcg/actuation aerosol inhaler gram ibuprofen 600 mg tablet 600 mg PO Q6H PRN #90 tab 09/07/18 dicloxacillin 500 mg capsule 500 mg PO QID #40 cap 01/31/19 oxycodone 5 mg PO Q4-6H PRN #15 tab 02/04/19 sulfamethoxazole-trimethoprim 1 tab PO BID #20 tab 02/04/19 [Bactrim DS] Allergies Allergy/AdvReac Type Severity Reaction Status Date / Time adhesive Allergy Mild Hives Verified 02/05/19 08:31 azithromycin [From Zithromax] Allergy Mild Hives Verified 02/05/19 08:31 beeswax Allergy Mild Hives Verified 02/05/19 08:31 clindamycin Allergy Mild Hives Verified 02/05/19 08:31 latex Allergy Hives Verified 02/05/19 08:31 Review of Systems Review of Systems ROS Unobtainable: All systems reviewed & are unremarkable except as noted in HPI and below Constitutional Denies chills, Denies fever(s), Denies lethargy and Denies weakness ENT Ears, Nose, Mouth, and Throat: Denies change in voice, Denies neck pain and Denies sore throat Cardiovascular Denies chest pain, Denies irregular heart rhythm, Denies lightheadedness, Denies palpitations and Denies orthopnea Gastrointestinal Gastrointestinal: Denies abdominal pain, Denies change in bowel habits, Denies diarrhea, Denies nausea and Denies vomiting Musculoskeletal Denies neck pain Integumentary/Breasts Reports as per HPI, Reports breast pain, Reports erythema and Reports skin swelling Neurologic Denies confusion and Denies weakness Psychiatric Denies anxiety, Denies confusion, Denies depression, Denies homicidal ideation and Denies suicidal ideation Endocrine Denies palpitations [facility] Medical History Asthma (Chronic) Migraine headache (Chronic) Social History Smoking Status: Never smoker Social History Smoking Status: Never smoker Exam Initial Vital Signs Initial Vital Signs: Vital Signs Temperature 97.9 F 02/05/19 08:28 Pulse Rate 86 02/05/19 08:28 Respiratory Rate 18 02/05/19 08:28 Blood Pressure 119/87 02/05/19 08:28 Pulse Oximetry 98 02/05/19 08:28 GENERAL: Well-appearing, well-nourished and in no acute distress. CARDIOVASCULAR: peripheral pulses in tact, cap refill <2 sec RESPIRATORY: No respiratory distress, speaks in full sentences without difficulty [ABDOMEN: Soft, nontender, no guarding or rebound] EXTREMITIES: Normal range of motion, no clubbing or edema. Neurovascularly intact NEUROLOGICAL: Cranial nerves II through XII grossly intact. Normal gait and speech. SKIN: Right breast erythema redness, redness actually receding from the marked line. She still has a 3 cm area via soft and fluctuant. Course Orders Ordered: Discontinued Medications Vancomycin HCl 1,250 mg/ (Sodium Chloride) 250 mls @ 250 mls/hr IV NOW ONE Stop: 02/05/19 08:55 Last Infusion: 02/05/19 10:47 Dose: 0 mls/hr Admin: 02/05/19 09:18 Dose: 250 mls/hr Vital Signs - 8 hr 02/05/19 08:28 02/05/19 10:46 Temperature 97.9 F 97.9 F Pulse Rate 86 64 Respiratory Rate 18 14 Blood Pressure 119/87 Blood Pressure [Left Arm] 107/64 Pulse Oximetry 98 MDM - Recheck/Abnormal Lab/Rx Lab Data Attestation: I reviewed the patient's lab results. MDM Narrative Medical decision making narrative: At this time clinical improvement from yesterday. She will receive 1 further dose of IV antibiotics. She is taking her oral antibiotics. Recommend outpatient follow-up with OB possible 2nd attempt of I&D by interventional radiology. This can be set up by her OB as an outpatient procedure. Discharge Plan Departure Patient Disposition: Home Clinical Impression: Abscess of breast, right Discharge Date/Time: 02/05/19 11:10 Interventions: ED Discharge Assessment Last Done: 02/05/19 11:10 Instructions: DI for Skin Abscess Activity Restrictions/Additional Instructions: *You have been diagnosed with abscess of right breast *What to do: You still may need a 2nd attempt at draining the abscess. However amended that you do this with Interventional Radiology.. Follow up with your Ob to help set up outpatient drainage if needed. Continue warm compresses *Continue to take medications as directed Continue antibiotic and pain medication as previously prescribed *Follow up with your primary care provider in 2-3 days *Return to ER if you should have fever, increasing pain, increasing redness or any new, worsening or concerning symptoms Prescriptions: No Action ibuprofen 600 mg tablet 600 mg PO Q6H PRN (Reason: pain) Qty: 90 RF: 0 Double Electric Breast Pump Qty: 1 RF: 0 albuterol sulfate 90 mcg/actuation HFA aerosol inhaler 1 puff INHALATION Q4-6H PRN (Reason: asthma) Qty: 18 RF: 1 dicloxacillin 500 mg capsule 500 mg PO QID Qty: 40 RF: 0 Nexplanon 68 mg Implant 68 mg Subdermal .ONCE RF: 0 sulfamethoxazole-trimethoprim [Bactrim DS] 800-160 mg tablet 1 tab PO BID Qty: 20 RF: 0 oxycodone 5 mg tablet 5 mg PO Q4-6H PRN (Reason: pain) Qty: 15 RF: 0 Referrals: Su Jimenez MD [Primary Care Provider] -
[2019-02-05] MEDS: VANCOMYCIN 1,250 MG in SODIUM CHLORIDE 0.9% 250 ML IV (09:18)
[2019-02-05 10:46] VITALS: BP 107/64; PULSE 64; RESP 14; TEMP 36.6
== END 2019-02-05 11:10 | disposition home or self-care (01) ==
PROVIDERS: Emergency Provider Emergency Medicine; Family Provider Specialist
DX: N61.1 Abscess of the breast and nipple (principal)
CPT/HCPCS: 96365; 99283; 99284

== ENCOUNTER 2019-02-09 13:52 | Day surgery (SDC) | payer OTHER, MEDICAID, SELFPAY ==
[2019-02-08 14:39] VITALS: BMI 29.4
[2019-02-09] VITALS (8 sets, daily range): BP systolic 104–135; BP diastolic 52–80; PULSE 72–91; RESP 12–21; TEMP 36.3–36.8; O2SAT 93–99; BMI 29.0
--- NOTE | 2019-02-09 | PATH_ITS ---
[facility] Accession Number: [id number] . 01 Material submitted: . RIGHT BREAST . 01 Diagnosis: Right Breast, Biopsy: Predominantly fibroadipose tissue and focal benign ductules with associated chronic lymphoplasmacytic and histiocytic reaction, focal minimal neutrophilic inflammation, and fat necrosis. . MRV/02/14/2019 . 01 Electronically signed: . Lindsay Peterson MD, Pathologist NPI- [id number] . 01 Gross description: . Received in formalin, labeled breast biopsy, right, are multiple fragments of gutierrez-yellow fibrofatty tissue (2.5 x 1.5 x 0.5 cm in aggregate). No nodules, masses or lesions are identified. The tissue is inked black. Entirely submitted in cassettes A1 and A2 with the largest piece bisected in A2. Note: Approximate total fixation time in formalin-31 hours, calculated using a collection date of 02/09/2019 with no collection time given. ([id number]) /MRV . 01 Microscopic: . Deepers are examined. No polarizable material is present. . 01 Pathologist provided ICD-10: N61.0 . 01 CPT . 106947 Performed at: 01 [facility] [address] [place] [address] [address], [place], [place] [id number] MD Henry Pedro MD Phone: [phone]
--- NOTE | 2019-02-09 15:26 | PM.PREOP ---
Pre-operative Note Interval Note History & Physical reviewed/Exam performed by Physician: Yes Changes to H&P: No
[2019-02-09] MEDS: CEFAZOLIN 2 GM/100 ML FROZ.PIGGY IV (15:34)
[2019-02-09] MEDS: VANCOMYCIN 1,000 MG/200 ML FROZ.PIGGY 200 MG IV (15:57)
--- NOTE | 2019-02-09 16:02 | SUR.OPER ---
Supine on padded OR bed, head on pillow, arms secured on padded arm boards at <90 degrees abduction, legs uncrossed, safety belt at thigh, tape over blanket over lower legs.
--- NOTE | 2019-02-09 16:16 | PM.OP.1 ---
Operative Date/Time/Diagnoses Date of procedure: 02/09/19 Time of procedure: 16:17 Pre-op diagnosis: right breast abscess (deep) Post-op diagnosis: same Procedure & Clinicians Procedure: Incision and drainage and biopsy of the wall of the abscess Same procedure as scheduled: Yes Indications: Abscess right breast Surgeon: Tushar Carlson Click Yes if Unassisted: Yes Anesthesia Type: General Operative Notes Findings: Large deep cavity. due to bleeding difficult to see pus. Cavity cultured. Closure Type: not applicable Specimen(s): other (Wall of abscess cavity) Estimated Blood Loss (mL): 25 Blood products transfused: none Procedure in detail: Patient was placed supine on the operating room table underwent general LMA anesthesia. She was prepped and draped in the usual fashion. We used blue towels because of her tape allergy. Curvilinear incision was made at the medial edge of the fluctuant area near the edge of the nipple-areolar complex. The incision was carried into a deep abscess cavity with blunt and dissection. cultures were taken. A finger was inserted and all loculations were broken down. The wound was irrigated. Biopsies were taken of the wall. The wound was again irrigated and packed with saline gauze. Dressing was applied without tape and the patient tolerated the procedure well. Complications: none Condition: stable Disposition: PACU Plan for aftercare: Follow-up in the office
--- NOTE | 2019-02-09 16:21 | P.OP_ITS ---
Operative Date/Time/Diagnoses Date of procedure: 02/09/19 Time of procedure: 16:17 Pre-op diagnosis: right breast abscess (deep) Post-op diagnosis: same Procedure & Clinicians Procedure: Incision and drainage and biopsy of the wall of the abscess Same procedure as scheduled: Yes Indications: Abscess right breast Surgeon: Tushar Carlson Click Yes if Unassisted: Yes Anesthesia Type: General Operative Notes Findings: Large deep cavity. due to bleeding difficult to see pus. Cavity cultured. Closure Type: not applicable Specimen(s): other (Wall of abscess cavity) Estimated Blood Loss (mL): 25 Blood products transfused: none Procedure in detail: Patient was placed supine on the operating room table underwent general LMA anesthesia. She was prepped and draped in the usual fashion. We used blue towels because of her tape allergy. Curvilinear incision was made at the medial edge of the fluctuant area near the edge of the nipple- areolar complex. The incision was carried into a deep abscess cavity with blunt and dissection. cultures were taken. A finger was inserted and all loculations were broken down. The wound was irrigated. Biopsies were taken of the wall. The wound was again irrigated and packed with saline gauze. Dressing was a pplied without tape and the patient tolerated the procedure well. Complications: none Condition: stable Disposition: PACU Plan for aftercare: Follow-up in the office
[2019-02-09] MEDS: MEPERIDINE 50 MG/ML 25 MG IV (16:40)
[2019-02-09] MEDS: HYDROCODONE/ACET 5/325 TABLET 1 TAB PO (16:41)
[2019-02-09] MEDS: KETOROLAC 30 MG/ML VIAL IV (16:59)
--- NOTE | 2019-02-09 17:00 | SUR.PHASEI ---
iv was not started in JAN. total infused from bag is 800. see i & o
== END 2019-02-09 17:30 | disposition home or self-care (01) ==
PROVIDERS: Family Provider Specialist; PCP Specialist; Visit Provider Specialist
PROC: (CPT 19120; principal; 2019-02-09 15:15)
DX: N61.1 Abscess of the breast and nipple (principal)
CPT/HCPCS: 19120; 87070; 87075; 87205; J0690; J1100; J1885; J2175; J2250; J2405; J2704; J3010; J3370

== ENCOUNTER → 2019-04-26 12:47 | Outpatient (CLI) | payer OTHER, MEDICAID, SELFPAY ==
[2019-04-26 14:40] LABS: HCG Quantitative /Beta subunit < 2.39 mIU/mL
== END ==
PROVIDERS: Family Provider Specialist; PCP Specialist; Visit Provider Specialist
DX: N91.2 Amenorrhea, unspecified (principal)
CPT/HCPCS: 36415; 84702

== ENCOUNTER 2019-06-16 15:23 | Emergency (ER) | payer OTHER, MEDICAID, SELFPAY ==
[2019-06-16 15:30] VITALS: BP 125/68; PULSE 70; RESP 22; TEMP 36.6; O2SAT 100; BMI 29.6
[2019-06-16 16:04] LABS: Add Manual Diff / Slide Review NO; Basophils Absolute Auto 0 /uL (0-100); Basophils Percent Auto 0.5 % (0-2); Eosinophils Absolute Auto 100 /uL (0-450); Eosinophils Percent Auto 0.9 % (2-4); Hematocrit 36.9 % (36-46); Hemoglobin 12.2 g/dL (12.0-16.0); Lymphocytes Absolute Auto 2800 /uL (1100-4500); Lymphocytes Percent Auto 26.9 % (25-40); Mean Corpuscular Volume 82.1 fL (80-100); Monocytes Absolute Auto 600 /uL (0-900); Monocytes Percent Auto 5.9 % (3-14); Neutrophils Absolute Auto 6900 /uL (1500-7000); Neutrophils Percent Auto 65.8 % (50-75); Platelet Count 284 X10^3/uL (150-400); Red Blood Cell Count 4.49 X10^6/uL (4.0-5.2); Red Cell Distribution Width 14.3 % (11.6-14.8); White Blood Cell Count 10.4 X10^3/uL (4.5-11.0)
--- NOTE | 2019-06-16 16:07 | DI.US.S_ITS ---
PROCEDURE: US PELVIC COMPLETE INDICATIONS: RLQ PAIN TECHNIQUE: Real-time scanning was performed of the pelvic organs, with image documentation. Additional endovaginal scanning was necessary due to incomplete visualization of the adnexal and endometrial structures by transabdominal scanning. COMPARISON: None. FINDINGS: Transabdominal scanning: Limited scanning through the kidneys shows no hydronephrosis. No pathologic free abdominal or pelvic fluid. The appendix was not visualized on today's exam. No free fluid. Uterus: Uterus is normal in size at 8.7 x 3.5 x 6.0 cm. The endometrium was not well visualized transabdominally. The patient did not want to have the transvaginal component of this study. Ovaries: Right ovary measures 4.9 x 3.9 x 4.0 cm. A simple 3.7 cm right ovarian cyst is identified. Left ovary not well visualized. IMPRESSION: 1. Limited sonographic evaluation of the pelvis as the patient did not want to have the endovaginal component of this examination. The endometrial stripe and the left ovary were not well visualized. 2. A 3.7 cm simple right ovarian cyst. 3. The appendix was not visualized. Dictated by: Malik Monterroso M.D. on 06/16/2019 at 17:57 Approved by: Malik Monterroso M.D. on 06/16/2019 at 18:02
[2019-06-16 16:10] LABS: Alanine Aminotransferase 17 IU/L (9-52); Albumin 4.4 g/dL (3.5-5.0); Albumin Globulin Ratio 1.4 (1.0-2.8); Alkaline Phosphatase 88 U/L (38-126); Aspartate Aminotransferase 18 IU/L (14-36); BUN Creatinine Ratio 13.3 (6-22); Bilirubin Total 0.3 mg/dL (0.2-1.3); Blood Urea Nitrogen 8 mg/dL (7-17); Calcium 9.4 mg/dL (8.4-10.2); Carbon Dioxide 26 mmol/L (22-32); Chloride 100 mmol/L (98-107); Estimated Glomerular Filt Rate > 60.0 mL/min (>60); Globulin 3.1 g/dL (1.7-4.1); Glucose 124 mg/dL (70-100); HEMOLYSIS < 15 (0-50); Lipase 109 U/L (23-300); Potassium 3.6 mmol/L (3.4-5.1); Sodium 139 mmol/L (137-145); Total Protein 7.5 g/dL (6.3-8.2)
[2019-06-16] MEDS: ONDANSETRON 4 MG/2 ML INJ IV (16:22)
[2019-06-16] MEDS: MORPHINE 4 MG/ML INJ IV ×2 (16:22→18:15)
[2019-06-16] MEDS: SODIUM CHLORIDE 0.9% 1,000 ML 1000 ML IV (16:23)
[2019-06-16 16:29] LABS: Amylase 56 U/L (30-110)
[2019-06-16 16:33] LABS: RBC Urine None Seen (0-5/HPF)
[2019-06-16 16:44] LABS: Bacteria Urine Few (2-10); Culture Indicated Urine Specimen Cultured; Squamous Epithelial Cell Urine 1-5 /HPF (0-5/HPF); WBC Urine 1-5/HPF (0-5/HPF)
[2019-06-16 18:04] VITALS: BP 126/63; PULSE 88; RESP 17; O2SAT 100
[2019-06-16] MEDS: PHENAZOPYRIDINE 100 MG TABLET PO (18:15)
--- NOTE | 2019-06-16 18:29 | ED.ABDPAIN ---
HPI - Abdominal Pain <DEREK Cano-BC - Last Filed: 06/16/19 18:43> General Chief Complaint: Abdominal Pain Stated Complaint: abd pain for 1 month, now severe Time Seen by Provider: 06/16/19 15:33 Source: patient and family Mode of arrival: ambulatory Limitations: no limitations History of Present Illness HPI narrative: The patient is a nonsmoker 23-year-old female who presents with her for chief complaint of right lower quadrant pain. She has a history of mastitis. She states that she has chronic right lower quadrant pain, which began in 2014. She states has been worse for the past day and a half so she decided to come to the emergency department. She complains of nausea and vomiting. She denies any diarrhea. She denies constipation. Last bowel movement this morning. She has not taken anything to feel better. She had a colonoscopy in note this copy done 3 months ago. She states that she has had multiple CTs and ultrasounds. She states that she has not taken anything for the pain. Nothing makes it better and nothing makes it worse. She denies any fevers. She states she is eating and drinking okay. She denies any vaginal discharge. She denies any regular menstrual bleeding. She has a Nexplanon. She denies any possibility of sexually transmitted infections. She does have history of cholecystectomy. Related Data Home Medications Medication Instructions Recorded Confirmed Nexplanon 68 mg SUBDERMAL .ONCE 02/04/19 06/16/19 Previous Rx's Medication Instructions Recorded albuterol sulfate HFA 90 1 puff INHALATION Q4-6H PRN #18 06/29/18 mcg/actuation aerosol inhaler gram ketorolac 10 mg PO TID PRN #14 tab 06/16/19 ondansetron 4 mg PO Q6H PRN #20 tab 06/16/19 sulfamethoxazole-trimethoprim 1 tab PO DAILY #10 tab 06/16/19 Allergies Allergy/AdvReac Type Severity Reaction Status Date / Time adhesive Allergy Mild Hives Verified 03/04/19 09:55 azithromycin [From Zithromax] Allergy Mild Hives Verified 03/04/19 09:55 beeswax Allergy Mild Hives Verified 03/04/19 09:55 clindamycin Allergy Mild Hives Verified 03/04/19 09:55 latex Allergy Hives Verified 03/04/19 09:55 Review of Systems <TAB Cano - Last Filed: 06/16/19 18:43> Review of Systems GENERAL: Denies chills, fatigue, malaise, fever, sweats. HEENT: Denies sinus pain, ear pain, sore throat, difficulty swallowing, dizziness. RESPIRATORY: Denies dyspnea, cough, wheezing, hemoptysis, sputum. CARDIOVASCULAR: Denies chest pain, palpitations, orthopnea, edema, GASTROINTESTINAL: See HPI : Denies dysuria, frequency, incontinence, hematuria, urinary retention. MUSCULOSKELETAL: denies weakness, joint pain, or bony pain SKIN: Denies rash, skin lesions, or other NEUROLOGIC: Denies weakness, headache, numbness, change in speech, confusion, seizures, incoordination. PSYCHIATRIC: No concerning psychosocial issues. 12 point review of systems is negative except for those stated above PFSH <TAB Cano - Last Filed: 06/16/19 18:43> Medical History Asthma (Chronic) Migraine headache (Chronic) Hx of wisdom tooth extraction (Resolved) Surgical History Hx of cholecystectomy (Resolved) Hx of tonsillectomy (Resolved) Family History Father Hypertension Diabetes mellitus Mother Diabetes mellitus Grandmother Heart disease Gallstones Hypertension Grandfather Hypertension Heart disease Stroke Social History household members: significant other and children Smoking Status: Never smoker alcohol intake: current Family History Father Hypertension Diabetes mellitus Mother Diabetes mellitus Grandmother Heart disease Gallstones Hypertension Grandfather Hypertension Heart disease Stroke Social History household members: significant other and children Smoking Status: Never smoker alcohol intake: current Exam <TAB Cano - Last Filed: 06/16/19 18:43> Narrative Exam Narrative: GENERAL: This is a well-nourished, well-developed patient, lying on stretcher appears teary HEAD: Atraumatic. Normocephalic. No temporal or scalp tenderness. EYES: Pupils equal round and reactive. Extraocular motions intact. No scleral icterus. No injection or drainage. ENT: Nose without bleeding, purulent drainage or septal hematoma. Throat without erythema, tonsillar hypertrophy or exudate. Uvula midline. Airway patent. NECK: Trachea midline. No JVD or lymphadenopathy. Supple, nontender, no meningeal signs. CARDIOVASCULAR: Regular rate and rhythm without murmurs, gallops, or rubs. RESPIRATORY: Clear to auscultation. Breath sounds equal bilaterally. No wheezes, rales, or rhonchi. GASTROINTESTINAL: Abdomen soft, diffusely tender bilateral lower quadrants, nondistended. No hepato-splenomegaly, or palpable masses. No guarding. Active bowel sounds all 4 quadrants. EXTREMITIES: No clubbing, cyanosis, or edema. No joint tenderness, effusion, or edema noted. BACK: Nontender without deformity or crepitance. No flank tenderness. No CVA tenderness. NEURO: AOx3. SKIN: No rash or erythema. Initial Vital Signs Initial Vital Signs: Vital Signs Temperature 97.9 F 06/16/19 15:30 Pulse Rate 70 06/16/19 15:30 Respiratory Rate 22 06/16/19 15:30 Blood Pressure 125/68 06/16/19 15:30 Pulse Oximetry 100 06/16/19 15:30 <Lois Alfredo DO - Last Filed: 06/16/19 19:21> Initial Vital Signs Initial Vital Signs: Vital Signs Temperature 97.9 F 06/16/19 15:30 Pulse Rate 70 06/16/19 15:30 Respiratory Rate 22 06/16/19 15:30 Blood Pressure 125/68 06/16/19 15:30 Pulse Oximetry 100 06/16/19 15:30 Course <TAB Cano - Last Filed: 06/16/19 18:43> Orders Ordered: ED Orders 06/16/19 15:40 Amylase Stat Complete Blood Count AUTO DIFF Stat Comprehensive Metabolic Panel Stat Lipase Stat 06/16/19 16:07 US pelvic complete Stat 06/16/19 16:32 Urine Culture Stat Urine Microscopic Stat Discontinued Medications Sodium Chloride (Normal Saline 0.9%) 1,000 mls @ 1,000 mls/hr IV BOLUS ONE Stop: 06/16/19 17:06 Last Admin: 06/16/19 16:23 Dose: 1,000 mls/hr Ketorolac Tromethamine (Toradol) 30 mg IV NOW ONE Stop: 06/16/19 18:26 Last Admin: 06/16/19 18:58 Dose: 30 mg Morphine Sulfate (Morphine) 4 mg IV NOW ONE Stop: 06/16/19 16:08 Last Admin: 06/16/19 16:22 Dose: 4 mg Morphine Sulfate (Morphine) 4 mg IV NOW ONE Stop: 06/16/19 18:06 Last Admin: 06/16/19 18:15 Dose: 4 mg Ondansetron HCl (Zofran) 4 mg IV NOW ONE Stop: 06/16/19 16:08 Last Admin: 06/16/19 16:22 Dose: 4 mg Phenazopyridine HCl (Pyridium) 100 mg PO NOW ONE Stop: 06/16/19 18:07 Last Admin: 06/16/19 18:15 Dose: 100 mg Vital Signs - 8 hr 06/16/19 15:30 06/16/19 18:04 Temperature 97.9 F Pulse Rate 70 88 Respiratory Rate 22 17 Blood Pressure 125/68 Blood Pressure [Right Arm] 126/63 Pulse Oximetry 100 100 <Lois Alfredo, - Last Filed: 06/16/19 19:21> Orders Ordered: ED Orders 06/16/19 15:40 Amylase Stat Complete Blood Count AUTO DIFF Stat Comprehensive Metabolic Panel Stat Lipase Stat 06/16/19 16:07 US pelvic complete Stat 06/16/19 16:32 Urine Culture Stat Urine Microscopic Stat Discontinued Medications Sodium Chloride (Normal Saline 0.9%) 1,000 mls @ 1,000 mls/hr IV BOLUS ONE Stop: 06/16/19 17:06 Last Admin: 06/16/19 16:23 Dose: 1,000 mls/hr Ketorolac Tromethamine (Toradol) 30 mg IV NOW ONE Stop: 06/16/19 18:26 Last Admin: 06/16/19 18:58 Dose: 30 mg Morphine Sulfate (Morphine) 4 mg IV NOW ONE Stop: 06/16/19 16:08 Last Admin: 06/16/19 16:22 Dose: 4 mg Morphine Sulfate (Morphine) 4 mg IV NOW ONE Stop: 06/16/19 18:06 Last Admin: 06/16/19 18:15 Dose: 4 mg Ondansetron HCl (Zofran) 4 mg IV NOW ONE Stop: 06/16/19 16:08 Last Admin: 06/16/19 16:22 Dose: 4 mg Phenazopyridine HCl (Pyridium) 100 mg PO NOW ONE Stop: 06/16/19 18:07 Last Admin: 06/16/19 18:15 Dose: 100 mg Vital Signs - 8 hr 06/16/19 15:30 06/16/19 18:04 Temperature 97.9 F Pulse Rate 70 88 Respiratory Rate 22 17 Blood Pressure 125/68 Blood Pressure [Right Arm] 126/63 Pulse Oximetry 100 100 MDM - Abdominal Pain <DEREK Cano- - Last Filed: 06/16/19 18:43> Lab Data Result diagrams: 06/16/19 15:40 06/16/19 15:40 Lab Results 06/16/19 06/16/19 06/16/19 Range/Units 15:40 15:40 15:40 WBC 10.4 (4.5-11.0) X10^3/uL RBC 4.49 (4.0-5.2) X10^6/uL Hgb 12.2 (12.0-16.0) g/dL Hct 36.9 (36-46) % MCV 82.1 (80-100) fL MCH 27.0 (26-34) PG MCHC 33.0 (30-36) % RDW 14.3 (11.6-14.8) % Plt Count 284 (150-400) X10^3/uL Neut % (Auto) 65.8 (50-75) % Lymph % (Auto) 26.9 (25-40) % [place] % (Auto) 5.9 (3-14) % Eos % (Auto) 0.9 L (2-4) % Baso % (Auto) 0.5 (0-2) % Neut # (Auto) 6900 (2268-6801) /uL Lymph # (Auto) 2800 (0163-7343) /uL [place] # (Auto) 600 (0-900) /uL Eos # (Auto) 100 (0-450) /uL Baso # (Auto) 0 (0-100) /uL Sodium 139 (137-145) mmol/L Potassium 3.6 (3.4-5.1) mmol/L Chloride 100 (98-107) mmol/L Carbon Dioxide 26 (22-32) mmol/L BUN 8 (7-17) mg/dL Creatinine 0.60 (0.52-1.04) mg/dL Estimated GFR > 60.0 (>60) mL/min BUN/Creatinine Ratio 13.3 (6-22) Glucose 124 H (70-100) mg/dL Calcium 9.4 (8.4-10.2) mg/dL Total Bilirubin 0.3 (0.2-1.3) mg/dL AST 18 (14-36) IU/L ALT 17 (9-52) IU/L Alkaline Phosphatase 88 (38-126) U/L Total Protein 7.5 (6.3-8.2) g/dL Albumin 4.4 (3.5-5.0) g/dL Globulin 3.1 (1.7-4.1) g/dL Albumin/Globulin Ratio 1.4 (1.0-2.8) Amylase 56 (30-110) U/L Lipase 109 (23-300) U/L Urine RBC (0-5/HPF) Urine WBC (0-5/HPF) Ur Squamous Epith Cells (0-5/HPF) Urine Bacteria (None) Ur Culture Indicated? 06/16/19 Range/Units 16:32 WBC (4.5-11.0) X10^3/uL RBC (4.0-5.2) X10^6/uL Hgb (12.0-16.0) g/dL Hct (36-46) % MCV (80-100) fL MCH (26-34) PG MCHC (30-36) % RDW (11.6-14.8) % Plt Count (150-400) X10^3/uL Neut % (Auto) (50-75) % Lymph % (Auto) (25-40) % [place] % (Auto) (3-14) % Eos % (Auto) (2-4) % Baso % (Auto) (0-2) % Neut # (Auto) (4777-3525) /uL Lymph # (Auto) (2709-3678) /uL [place] # (Auto) (0-900) /uL Eos # (Auto) (0-450) /uL Baso # (Auto) (0-100) /uL Sodium (137-145) mmol/L Potassium (3.4-5.1) mmol/L Chloride (98-107) mmol/L Carbon Dioxide (22-32) mmol/L BUN (7-17) mg/dL Creatinine (0.52-1.04) mg/dL Estimated GFR (>60) mL/min BUN/Creatinine Ratio (6-22) Glucose (70-100) mg/dL Calcium (8.4-10.2) mg/dL Total Bilirubin (0.2-1.3) mg/dL AST (14-36) IU/L ALT (9-52) IU/L Alkaline Phosphatase (38-126) U/L Total Protein (6.3-8.2) g/dL Albumin (3.5-5.0) g/dL Globulin (1.7-4.1) g/dL Albumin/Globulin Ratio (1.0-2.8) Amylase (30-110) U/L Lipase (23-300) U/L Urine RBC None seen (0-5/HPF) Urine WBC 1-5/hpf (0-5/HPF) Ur Squamous Epith Cells 1-5 /hpf (0-5/HPF) Urine Bacteria Few (2-10) H (None) Ur Culture Indicated? Specimen cultured Point of care testing: Point of Care Testing Test Results Negative Urine Dip Bedside Urine Glucose Negative Bedside Urine Bilirubin - Negative Bedside Urine Ketone - Negative Urine Specific Cecil 1.010 Bedside Urine Occult Blood - Negative Bedside Urine pH 8.0 Bedside Urine Protein - Negative Bedside Urine Urobilinogen +/- 1mg Bedside Urine Nitrite - Negative Bedside Urine Leukocytes + 70 Esterase Imaging Data Pelvic ultrasound: Radiologist's impression: [address] [address] Ultrasound Report Signed Patient: Lizzette Boyd JMR#: [id number] : 1995Acct:[id number] Age/Sex: 23 / FDate of Service: 06/16/19 Loc: ED Accession Number: [id number] Procedure: US pelvic complete Ordering Provider: Lois Jones TELEGRAPHER AGENT- PROCEDURE: US PELVIC COMPLETE INDICATIONS: RLQ PAIN TECHNIQUE: Real-time scanning was performed of the pelvic organs, with image documentation. Additional endovaginal scanning was necessary due to incomplete visualization of the adnexal and endometrial structures by transabdominal scanning. COMPARISON: None. FINDINGS: Transabdominal scanning: Limited scanning through the kidneys shows no hydronephrosis. No pathologic free abdominal or pelvic fluid. The appendix was not visualized on today's exam. No free fluid. Uterus: Uterus is normal in size at 8.7 x 3.5 x 6.0 cm. The endometrium was not well visualized transabdominally. The patient did not want to have the transvaginal component of this study. Ovaries: Right ovary measures 4.9 x 3.9 x 4.0 cm. A simple 3.7 cm right ovarian cyst is identified. Left ovary not well visualized. IMPRESSION: 1. Limited sonographic evaluation of the pelvis as the patient did not want to have the endovaginal component of this examination. The endometrial stripe and the left ovary were not well visualized. 2. A 3.7 cm simple right ovarian cyst. 3. The appendix was not visualized. Dictated by: Malik Monterroso M.D. on 06/16/2019 at 17:57 Approved by: Malik Monterroso M.D. on 06/16/2019 at 18:02 MDM Narrative Medical decision making narrative: The patient is a 23-year-old female who presents with right lower quadrant pain that has been ongoing for the past 5 years. She states it has been worse over the past few days. Ultrasound reveals an ovarian cyst on the right side, which can definitely be a cause of her pain. She does not have an elevated white blood cell count denies any fevers, making appendicitis less likely. She has also had this pain chronically for the past several years. She does have leukocyte esterase as well as bacteria in her urine, indicating urinary tract infection. Thus I am placing her on Bactrim, I have given her Toradol in the emergency department for pain and given her prescription of Toradol. I discussed at length follow up with her PCP. Discussed coming back to the ER for any acute concerns such as inability keep down fluids, fever with abdominal pain. Patient and have no questions or concerns upon discharge. <Lois Alfredo DO - Last Filed: 06/16/19 19:21> Lab Data Lab Results 06/16/19 06/16/19 06/16/19 Range/Units 15:40 15:40 15:40 WBC 10.4 (4.5-11.0) X10^3/uL RBC 4.49 (4.0-5.2) X10^6/uL Hgb 12.2 (12.0-16.0) g/dL Hct 36.9 (36-46) % MCV 82.1 (80-100) fL MCH 27.0 (26-34) PG MCHC 33.0 (30-36) % RDW 14.3 (11.6-14.8) % Plt Count 284 (150-400) X10^3/uL Neut % (Auto) 65.8 (50-75) % Lymph % (Auto) 26.9 (25-40) % [place] % (Auto) 5.9 (3-14) % Eos % (Auto) 0.9 L (2-4) % Baso % (Auto) 0.5 (0-2) % Neut # (Auto) 6900 (9205-7295) /uL Lymph # (Auto) 2800 (2[address]-7800) /uL [place] # (Auto) 600 (0-900) /uL Eos # (Auto) 100 (0-450) /uL Baso # (Auto) 0 (0-100) /uL Sodium 139 (137-145) mmol/L Potassium 3.6 (3.4-5.1) mmol/L Chloride 100 (98-107) mmol/L Carbon Dioxide 26 (22-32) mmol/L BUN 8 (7-17) mg/dL Creatinine 0.60 (0.52-1.04) mg/dL Estimated GFR > 60.0 (>60) mL/min BUN/Creatinine Ratio 13.3 (6-22) Glucose 124 H (70-100) mg/dL Calcium 9.4 (8.4-10.2) mg/dL Total Bilirubin 0.3 (0.2-1.3) mg/dL AST 18 (14-36) IU/L ALT 17 (9-52) IU/L Alkaline Phosphatase 88 (38-126) U/L Total Protein 7.5 (6.3-8.2) g/dL Albumin 4.4 (3.5-5.0) g/dL Globulin 3.1 (1.7-4.1) g/dL Albumin/Globulin Ratio 1.4 (1.0-2.8) Amylase 56 (30-110) U/L Lipase 109 (23-300) U/L Urine RBC (0-5/HPF) Urine WBC (0-5/HPF) Ur Squamous Epith Cells (0-5/HPF) Urine Bacteria (None) Ur Culture Indicated? 06/16/19 Range/Units 16:32 WBC (4.5-11.0) X10^3/uL RBC (4.0-5.2) X10^6/uL Hgb (12.0-16.0) g/dL Hct (36-46) % MCV (80-100) fL MCH (26-34) PG MCHC (30-36) % RDW (11.6-14.8) % Plt Count (150-400) X10^3/uL Neut % (Auto) (50-75) % Lymph % (Auto) (25-40) % [place] % (Auto) (3-14) % Eos % (Auto) (2-4) % Baso % (Auto) (0-2) % Neut # (Auto) (8127-5442) /uL Lymph # (Auto) (0108-6504) /uL [place] # (Auto) (0-900) /uL Eos # (Auto) (0-450) /uL Baso # (Auto) (0-100) /uL Sodium (137-145) mmol/L Potassium (3.4-5.1) mmol/L Chloride (98-107) mmol/L Carbon Dioxide (22-32) mmol/L BUN (7-17) mg/dL Creatinine (0.52-1.04) mg/dL Estimated GFR (>60) mL/min BUN/Creatinine Ratio (6-22) Glucose (70-100) mg/dL Calcium (8.4-10.2) mg/dL Total Bilirubin (0.2-1.3) mg/dL AST (14-36) IU/L ALT (9-52) IU/L Alkaline Phosphatase (38-126) U/L Total Protein (6.3-8.2) g/dL Albumin (3.5-5.0) g/dL Globulin (1.7-4.1) g/dL Albumin/Globulin Ratio (1.0-2.8) Amylase (30-110) U/L Lipase (23-300) U/L Urine RBC None seen (0-5/HPF) Urine WBC 1-5/hpf (0-5/HPF) Ur Squamous Epith Cells 1-5 /hpf (0-5/HPF) Urine Bacteria Few (2-10) H (None) Ur Culture Indicated? Specimen cultured Point of care testing: Point of Care Testing Test Results Negative Urine Dip Bedside Urine Glucose Negative Bedside Urine Bilirubin - Negative Bedside Urine Ketone - Negative Urine Specific [place] 1.010 Bedside Urine Occult Blood - Negative Bedside Urine pH 8.0 Bedside Urine Protein - Negative Bedside Urine Urobilinogen +/- 1mg Bedside Urine Nitrite - Negative Bedside Urine Leukocytes + 70 Esterase Discharge Plan Departure Patient Disposition: Home Clinical Impression: UTI (urinary tract infection) Qualifiers: Urinary tract infection type: site unspecified Hematuria presence: without hematuria Qualified Code(s): N39.0 - Urinary tract infection, site not specified Ovarian cyst Qualifiers: Laterality: right Qualified Code(s): N83.201 - Unspecified ovarian cyst, right side Instructions: DI for Urinary Tract Infection (UTI), DI for Ovarian Cyst Activity Restrictions/Additional Instructions: Your ultrasound shows an ovarian cyst. Your urinalysis shows a urinary tract infection. I have started you on Bactrim, which is an antibiotic I have also given you a prescription of Toradol, which is an anti-inflammatory. Do not combine this with any other NSAIDs such as ibuprofen or Aleve. A urine culture is pending at this time and we will call you if we need to change your antibiotics. Please follow up with a primary care provider. Please come back to the emergency department for any acute concerns such as inability to keep down fluid, flank pain, fever with abdominal pain, etc Prescriptions: New sulfamethoxazole-trimethoprim 800-160 mg tablet 1 tab PO DAILY Qty: 10 RF: 0 ketorolac 10 mg tablet 10 mg PO TID PRN (Reason: pain) Qty: 14 RF: 0 ondansetron 4 mg tablet,disintegrating 4 mg PO Q6H PRN (Reason: nausea and vomiting) Qty: 20 RF: 0 No Action albuterol sulfate 90 mcg/actuation HFA aerosol inhaler 1 puff INHALATION Q4-6H PRN (Reason: asthma) Qty: 18 RF: 1 Nexplanon 68 mg Implant 68 mg Subdermal .ONCE RF: 0 Referrals: Foist,Su B, MD [Primary Care Provider] - Stand Alone Forms: Work Release Note <Lois Alfredo DO - Last Filed: 06/16/19 19:21> Cosign ED Attending Cosignature Attestation: I was immediately available in the department for consultation. This documentation has been reviewed and I agree with assessment and plan. Supervised by Lois Alfredo DO
--- NOTE | 2019-06-16 18:37 | ED_ITS ---
HPI - Abdominal Pain <DEREK Cano-BC - Last Filed: 06/16/19 18:43> General Chief Complaint: Abdominal Pain Stated Complaint: abd pain for 1 month, now severe Time Seen by Provider: 06/16/19 15:33 Source: patient and family Mode of arrival: ambulatory Limitations: no limitations History of Present Illness HPI narrative: The patient is a nonsmoker 23-year-old female who presents with her for chief complaint of right lower quadrant pain. She has a history of mastitis. She states that she has chronic right lower quadrant pain, which began in 2014. She states has been worse for the past day and a half so she decided to come to the emergency department. She complains of nausea and vomiting. She denies any diarrhea. She denies constipation. Last bowel movement this morning. She has not taken anything to feel better. She had a colonoscopy in note this copy done 3 months ago. She states that she has had multiple CTs and ultrasounds. She states that she has not taken anything for the pain. Nothing makes it better and nothing makes it worse. She denies any fevers. She states she is eating and drinking okay. She denies any vaginal discharge. She denies any regular menstrual bleeding. She has a Nexplanon. She denies any possibility of sexually transmitted infections. She does have history of cholecystectomy. Related Data Home Medications Medication Instructions Recorded Confirmed Nexplanon 68 mg SUBDERMAL .ONCE 02/04/19 06/16/19 Previous Rx's Medication Instructions Recorded albuterol sulfate HFA 90 1 puff INHALATION Q4-6H PRN #18 06/29/18 mcg/actuation aerosol inhaler gram ketorolac 10 mg PO TID PRN #14 tab 06/16/19 ondansetron 4 mg PO Q6H PRN #20 tab 06/16/19 sulfamethoxazole-trimethoprim 1 tab PO DAILY #10 tab 06/16/19 Allergies Allergy/AdvReac Type Severity Reaction Status Date / Time adhesive Allergy Mild Hives Verified 03/04/19 09:55 azithromycin [From Zithromax] Allergy Mild Hives Verified 03/04/19 09:55 beeswax Allergy Mild Hives Verified 03/04/19 09:55 clindamycin Allergy Mild Hives Verified 03/04/19 09:55 latex Allergy Hives Verified 03/04/19 09:55 Review of Systems <TAB Cano - Last Filed: 06/16/19 18:43> Review of Systems GENERAL: Denies chills, fatigue, malaise, fever, sweats. HEENT: Denies sinus pain, ear pain, sore throat, difficulty swallowing, dizzines s. RESPIRATORY: Denies dyspnea, cough, wheezing, hemoptysis, sputum. CARDIOVASCULAR: Denies chest pain, palpitations, orthopnea, edema, GASTROINTESTINAL: See HPI : Denies dysuria, frequency, incontinence, hematuria, urinary retention. MUSCULOSKELETAL: denies weakness, joint pain, or bony pain SKIN: Denies rash, skin lesions, or other NEUROLOGIC: Denies weakness, headache, numbness, change in speech, confusion, seizures, incoordination. PSYCHIATRIC: No concerning psychosocial issues. 12 point review of systems is negative except for those stated above PFSH <TAB Cano - Last Filed: 06/16/19 18:43> Medical History Asthma (Chronic) Migraine headache (Chronic) Hx of wisdom tooth extraction (Resolved) Surgical History Hx of cholecystectomy (Resolved) Hx of tonsillectomy (Resolved) Family History Father Hypertension Diabetes mellitus Mother Diabetes mellitus Grandmother Heart disease Gallstones Hypertension Grandfather Hypertension Heart disease Stroke Social History household members: significant other and children Smoking Status: Never smoker alcohol intake: current Family History Father Hypertension Diabetes mellitus Mother Diabetes mellitus Grandmother Heart disease Gallstones Hypertension Grandfather Hypertension Heart disease Stroke Social History household members: significant other and children Smoking Status: Never smoker alcohol intake: current Exam <TAB Cano - Last Filed: 06/16/19 18:43> Narrative Exam Narrative: GENERAL: This is a well-nourished, well-developed patient, lying on stretcher appears teary HEAD: Atraumatic. Normocephalic. No temporal or scalp tenderness. EYES: Pupils equal round and reactive. Extraocular motions intact. No scleral icterus. No injection or drainage. ENT: Nose without bleeding, purulent drainage or septal hematoma. Throat without erythema, tonsillar hypertrophy or exudate. Uvula midline. Airway patent. NECK: Trachea midline. No JVD or lymphadenopathy. Supple, nontender, no meningeal signs. CARDIOVASCULAR: Regular rate and rhythm without murmurs, gallops, or rubs. RESPIRATORY: Clear to auscultation. Breath sounds equal bilaterally. No wheezes, rales, or rhonchi. GASTROINTESTINAL: Abdomen soft, diffusely tender bilateral lower quadrants, nondistended. No hepato-splenomegaly, or palpable masses. No guarding. Active bowel sounds all 4 quadrants. EXTREMITIES: No clubbing, cyanosis, or edema. No joint tenderness, effusion, or edema noted. BACK: Nontender without deformity or crepitance. No flank tenderness. No CVA tenderness. NEURO: AOx3. SKIN: No rash or erythema. Initial Vital Signs Initial Vital Signs: Vital Signs Temperature 97.9 F 06/16/19 15:30 Pulse Rate 70 06/16/19 15:30 Respiratory Rate 22 06/16/19 15:30 Blood Pressure 125/68 06/16/19 15:30 Pulse Oximetry 100 06/16/19 15:30 <Lois Alfredo DO - Last Filed: 06/16/19 19:21> Initial Vital Signs Initial Vital Signs: Vital Signs Temperature 97.9 F 06/16/19 15:30 Pulse Rate 70 06/16/19 15:30 Respiratory Rate 22 06/16/19 15:30 Blood Pressure 125/68 06/16/19 15:30 Pulse Oximetry 100 06/16/19 15:30 Course <TAB Cano - Last Filed: 06/16/19 18:43> Orders Ordered: ED Orders 06/16/19 15:40 Amylase Stat Complete Blood Count AUTO DIFF Stat Comprehensive Metabolic Panel Stat Lipase Stat 06/16/19 16:07 US pelvic complete Stat 06/16/19 16:32 Urine Culture Stat Urine Microscopic Stat Discontinued Medications Sodium Chloride (Normal Saline 0.9%) 1,000 mls @ 1,000 mls/hr IV BOLUS ONE Stop: 06/16/19 17:06 Last Admin: 06/16/19 16:23 Dose: 1,000 mls/hr Ketorolac Tromethamine (Toradol) 30 mg IV NOW ONE Stop: 06/16/19 18:26 Last Admin: 06/16/19 18:58 Dose: 30 mg Morphine Sulfate (Morphine) 4 mg IV NOW ONE Stop: 06/16/19 16:08 Last Admin: 06/16/19 16:22 Dose: 4 mg Morphine Sulfate (Morphine) 4 mg IV NOW ONE Stop: 06/16/19 18:06 Last Admin: 06/16/19 18:15 Dose: 4 mg Ondansetron HCl (Zofran) 4 mg IV NOW ONE Stop: 06/16/19 16:08 Last Admin: 06/16/19 16:22 Dose: 4 mg Phenazopyridine HCl (Pyridium) 100 mg PO NOW ONE Stop: 06/16/19 18:07 Last Admin: 06/16/19 18:15 Dose: 100 mg Vital Signs - 8 hr 06/16/19 15:30 06/16/19 18:04 Temperature 97.9 F Pulse Rate 70 88 Respiratory Rate 22 17 Blood Pressure 125/68 Blood Pressure [Right Arm] 126/63 Pulse Oximetry 100 100 <Lois Alfredo, - Last Filed: 06/16/19 19:21> Orders Ordered: ED Orders 06/16/19 15:40 Amylase Stat Complete Blood Count AUTO DIFF Stat Comprehensive Metabolic Panel Stat Lipase Stat 06/16/19 16:07 US pelvic complete Stat 06/16/19 16:32 Urine Culture Stat Urine Microscopic Stat Discontinued Medications Sodium Chloride (Normal Saline 0.9%) 1,000 mls @ 1,000 mls/hr IV BOLUS ONE Stop: 06/16/19 17:06 Last Admin: 06/16/19 16:23 Dose: 1,000 mls/hr Ketorolac Tromethamine (Toradol) 30 mg IV NOW ONE Stop: 06/16/19 18:26 Last Admin: 06/16/19 18:58 Dose: 30 mg Morphine Sulfate (Morphine) 4 mg IV NOW ONE Stop: 06/16/19 16:08 Last Admin: 06/16/19 16:22 Dose: 4 mg Morphine Sulfate (Morphine) 4 mg IV NOW ONE Stop: 06/16/19 18:06 Last Admin: 06/16/19 18:15 Dose: 4 mg Ondansetron HCl (Zofran) 4 mg IV NOW ONE Stop: 06/16/19 16:08 Last Admin: 06/16/19 16:22 Dose: 4 mg Phenazopyridine HCl (Pyridium) 100 mg PO NOW ONE Stop: 06/16/19 18:07 Last Admin: 06/16/19 18:15 Dose: 100 mg Vital Signs - 8 hr 06/16/19 15:30 06/16/19 18:04 Temperature 97.9 F Pulse Rate 70 88 Respiratory Rate 22 17 Blood Pressure 125/68 Blood Pressure [Right Arm] 126/63 Pulse Oximetry 100 100 MDM - Abdominal Pain <DEREK Cano- - Last Filed: 06/16/19 18:43> Lab Data Result diagrams: 06/16/19 15:40 06/16/19 15:40 Lab Results 06/16/19 06/16/19 06/16/19 Range/Units 15:40 15:40 15:40 WBC 10.4 (4.5-11.0) X10^3/uL RBC 4.49 (4.0-5.2) X10^6/uL Hgb 12.2 (12.0-16.0) g/dL Hct 36.9 (36-46) % MCV 82.1 (80-100) fL MCH 27.0 (26-34) PG MCHC 33.0 (30-36) % RDW 14.3 (11.6-14.8) % Plt Count 284 (150-400) X10^3/uL Neut % (Auto) 65.8 (50-75) % Lymph % (Auto) 26.9 (25-40) % [place] % (Auto) 5.9 (3-14) % Eos % (Auto) 0.9 L (2-4) % Baso % (Auto) 0.5 (0-2) % Neut # (Auto) 6900 (3635-4233) /uL Lymph # (Auto) 2800 (9099-9030) /uL [place] # (Auto) 600 (0-900) /uL Eos # (Auto) 100 (0-450) /uL Baso # (Auto) 0 (0-100) /uL Sodium 139 (137-145) mmol/L Potassium 3.6 (3.4-5.1) mmol/L Chloride 100 (98-107) mmol/L Carbon Dioxide 26 (22-32) mmol/L BUN 8 (7-17) mg/dL Creatinine 0.60 (0.52-1.04) mg/dL Estimated GFR > 60.0 (>60) mL/min BUN/Creatinine Ratio 13.3 (6-22) Glucose 124 H (70-100) mg/dL Calcium 9.4 (8.4-10.2) mg/dL Total Bilirubin 0.3 (0.2-1.3) mg/dL AST 18 (14-36) IU/L ALT 17 (9-52) IU/L Alkaline Phosphatase 88 (38-126) U/L Total Protein 7.5 (6.3-8.2) g/dL Albumin 4.4 (3.5-5.0) g/dL Globulin 3.1 (1.7-4.1) g/dL Albumin/Globulin Ratio 1.4 (1.0-2.8) Amylase 56 (30-110) U/L Lipase 109 (23-300) U/L Urine RBC (0-5/HPF) Urine WBC (0-5/HPF) Ur Squamous Epith Cells (0-5/HPF) Urine Bacteria (None) Ur Culture Indicated? 06/16/19 Range/Units 16:32 WBC (4.5-11.0) X10^3/uL RBC (4.0-5.2) X10^6/uL Hgb (12.0-16.0) g/dL Hct (36-46) % MCV (80-100) fL MCH (26-34) PG MCHC (30-36) % RDW (11.6-14.8) % Plt Count (150-400) X10^3/uL Neut % (Auto) (50-75) % Lymph % (Auto) (25-40) % [place] % (Auto) (3-14) % Eos % (Auto) (2-4) % Baso % (Auto) (0-2) % Neut # (Auto) (4586-0209) /uL Lymph # (Auto) (2154-6600) /uL [place] # (Auto) (0-900) /uL Eos # (Auto) (0-450) /uL Baso # (Auto) (0-100) /uL Sodium (137-145) mmol/L Potassium (3.4-5.1) mmol/L Chloride (98-107) mmol/L Carbon Dioxide (22-32) mmol/L BUN (7-17) mg/dL Creatinine (0.52-1.04) mg/dL Estimated GFR (>60) mL/min BUN/Creatinine Ratio (6-22) Glucose (70-100) mg/dL Calcium (8.4-10.2) mg/dL Total Bilirubin (0.2-1.3) mg/dL AST (14-36) IU/L ALT (9-52) IU/L Alkaline Phosphatase (38-126) U/L Total Protein (6.3-8.2) g/dL Albumin (3.5-5.0) g/dL Globulin (1.7-4.1) g/dL Albumin/Globulin Ratio (1.0-2.8) Amylase (30-110) U/L Lipase (23-300) U/L Urine RBC None seen (0-5/HPF) Urine WBC 1-5/hpf (0-5/HPF) Ur Squamous Epith Cells 1-5 /hpf (0-5/HPF) Urine Bacteria Few (2-10) H (None) Ur Culture Indicated? Specimen cultured Point of care testing: Point of Care Testing Test Results Negative Urine Dip Bedside Urine Glucose Negative Bedside Urine Bilirubin - Negative Bedside Urine Ketone - Negative Urine Specific [place] 1.010 Bedside Urine Occult Blood - Negative Bedside Urine pH 8.0 Bedside Urine Protein - Negative Bedside Urine Urobilinogen +/- 1mg Bedside Urine Nitrite - Negative Bedside Urine Leukocytes + 70 Esterase Imaging Data Pelvic ultrasound: Radiologist's impression: [address] [address] Ultrasound Report Signed Patient: Lizzette Boyd JMR#: [id number] : 1995Acct:[id number] Age/Sex: 23 / FDate of Service: 06/16/19 Loc: ED Accession Number: [id number] Procedure: US pelvic complete Ordering Provider: Lois Jones AMMUNITION OFFICER-BC PROCEDURE: US PELVIC COMPLETE INDICATIONS: RLQ PAIN TECHNIQUE: Real-time scanning was performed of the pelvic organs, with image documentation. Additional endovaginal scanning was necessary due to incomplete visualization of the adnexal and endometrial structures by transabdominal scanning. COMPARISON: None. FINDINGS: Transabdominal scanning: Limited scanning through the kidneys shows no hydronephrosis. No pathologic free abdominal or pelvic fluid. The appendix was not visualized on today's exam. No free fluid. Uterus: Uterus is normal in size at 8.7 x 3.5 x 6.0 cm. The endometrium was not well visualized transabdominally. The patient did not want to have the transvaginal component of this study. Ovaries: Right ovary measures 4.9 x 3.9 x 4.0 cm. A simple 3.7 cm right ovarian cyst is identified. Left ovary not well visualized. IMPRESSION: 1. Limited sonographic evaluation of the pelvis as the patient did not want to have the endovaginal component of this examination. The endometrial stripe and the left o vary were not well visualized. 2. A 3.7 cm simple right ovarian cyst. 3. The appendix was not visualized. Dictated by: Malik Monterroso M.D. on 06/16/2019 at 17:57 Approved by: Malik Monterroso M.D. on 06/16/2019 at 18:02 [facility] Narrative Medical decision making narrative: The patient is a 23-year-old female who presents with right lower quadrant pain that has been ongoing for the past 5 years. She states it has been worse over the past few days. Ultrasound reveals an ovarian cyst on the right side, which can definitely be a cause of her pain. She does not have an elevated white blood cell count denies any fevers, making appendicitis less likely. She has also had this pain chronically for the past several years. She does have leukocyte esterase as well as bacteria in her urine, indicating urinary tract infection. Thus I am placing her on Bactrim, I have given her Toradol in the emergency department for pain and given her prescription of Toradol. I discussed at length follow up with her PCP. Discussed coming back to the ER for any acute concerns such as inability keep down fluids, fever with abdominal pain. Patient and have no questions or concerns upon discharge. <Lois Alfredo, - Last Filed: 06/16/19 19:21> Lab Data Lab Results 08/08/19 08/08/19 08/08/19 Range/Units 15:40 15:40 15:40 WBC 10.4 (4.5-11.0) X10^3/uL RBC 4.49 (4.0-5.2) X10^6/uL Hgb 12.2 (12.0-16.0) g/dL Hct 36.9 (36-46) % MCV 82.1 (80-100) fL MCH 27.0 (26-34) PG MCHC 33.0 (30-36) % RDW 14.3 (11.6-14.8) % Plt Count 284 (150-400) X10^3/uL Neut % (Auto) 65.8 (50-75) % Lymph % (Auto) 26.9 (25-40) % [place] % (Auto) 5.9 (3-14) % Eos % (Auto) 0.9 L (2-4) % Baso % (Auto) 0.5 (0-2) % Neut # (Auto) 6900 (3142-3692) /uL Lymph # (Auto) 2800 (9582-8919) /uL [place] # (Auto) 600 (0-900) /uL Eos # (Auto) 100 (0-450) /uL Baso # (Auto) 0 (0-100) /uL Sodium 139 (137-145) mmol/L Potassium 3.6 (3.4-5.1) mmol/L Chloride 100 (98-107) mmol/L Carbon Dioxide 26 (22-32) mmol/L BUN 8 (7-17) mg/dL Creatinine 0.60 (0.52-1.04) mg/dL Estimated GFR > 60.0 (>60) mL/min BUN/Creatinine Ratio 13.3 (6-22) Glucose 124 H (70-100) mg/dL Calcium 9.4 (8.4-10.2) mg/dL Total Bilirubin 0.3 (0.2-1.3) mg/dL AST 18 (14-36) IU/L ALT 17 (9-52) IU/L Alkaline Phosphatase 88 (38-126) U/L Total Protein 7.5 (6.3-8.2) g/dL Albumin 4.4 (3.5-5.0) g/dL Globulin 3.1 (1.7-4.1) g/dL Albumin/Globulin Ratio 1.4 (1.0-2.8) Amylase 56 (30-110) U/L Lipase 109 (23-300) U/L Urine RBC (0-5/HPF) Urine WBC (0-5/HPF) Ur Squamous Epith Cells (0-5/HPF) Urine Bacteria (None) Ur Culture Indicated? 06/16/19 Range/Units 16:32 WBC (4.5-11.0) X10^3/uL RBC (4.0-5.2) X10^6/uL Hgb (12.0-16.0) g/dL Hct (36-46) % MCV (80-100) fL MCH (26-34) PG MCHC (30-36) % RDW (11.6-14.8) % Plt Count (150-400) X10^3/uL Neut % (Auto) (50-75) % Lymph % (Auto) (25-40) % [place] % (Auto) (3-14) % Eos % (Auto) (2-4) % Baso % (Auto) (0-2) % Neut # (Auto) (4921-6224) /uL Lymph # (Auto) (9461-5427) /uL [place] # (Auto) (0-900) /uL Eos # (Auto) (0-450) /uL Baso # (Auto) (0-100) /uL Sodium (137-145) mmol/L Potassium (3.4-5.1) mmol/L Chloride (98-107) mmol/L Carbon Dioxide (22-32) mmol/L BUN (7-17) mg/dL Creatinine (0.52-1.04) mg/dL Estimated GFR (>60) mL/min BUN/Creatinine Ratio (6-22) Glucose (70-100) mg/dL Calcium (8.4-10.2) mg/dL Total Bilirubin (0.2-1.3) mg/dL AST (14-36) IU/L ALT (9-52) IU/L Alkaline Phosphatase (38-126) U/L Total Protein (6.3-8.2) g/dL Albumin (3.5-5.0) g/dL Globulin (1.7-4.1) g/dL Albumin/Globulin Ratio (1.0-2.8) Amylase (30-110) U/L Lipase (23-300) U/L Urine RBC None seen (0-5/HPF) Urine WBC 1-5/hpf (0-5/HPF) Ur Squamous Epith Cells 1-5 /hpf (0-5/HPF) Urine Bacteria Few (2-10) H (None) Ur Culture Indicated? Specimen cultured Point of care testing: Point of Care Testing Test Results Negative Urine Dip Bedside Urine Glucose Negative Bedside Urine Bilirubin - Negative Bedside Urine Ketone - Negative Urine Specific [place] 1.010 Bedside Urine Occult Blood - Negative Bedside Urine pH 8.0 Bedside Urine Protein - Negative Bedside Urine Urobilinogen +/- 1mg Bedside Urine Nitrite - Negative Bedside Urine Leukocytes + 70 Esterase Discharge Plan Departure Patient Disposition: Home Clinical Impression: UTI (urinary tract infection) Qualifiers: Urinary tract infection type: site unspecified Hematuria presence: without hematuria Qualified Code(s): N39.0 - Urinary tract infection, site not specified Ovarian cyst Qualifiers: Laterality: right Qualified Code(s): N83.201 - Unspecified ovarian cyst, right side Instructions: DI for Urinary Tract Infection (UTI), DI for Ovarian Cyst Activity Restrictions/Additional Instructions: Your ultrasound shows an ovarian cyst. Your urinalysis shows a urinary tract infection. I have started you on Bactrim, which is an antibiotic I have also given you a prescription of Toradol, which is an anti-inflammatory. Do not combine this with any other NSAIDs such as ibuprofen or Aleve. A urine culture is pending at this time and we will call you if we need to change your antibiotics. Please follow up with a primary care provider. Please come back to the emergency department for any acute concerns such as inability to keep down fluid, flank pain, fever with abdominal pain, etc Prescriptions: New sulfamethoxazole-trimethoprim 800-160 mg tablet 1 tab PO DAILY Qty: 10 RF: 0 ketorolac 10 mg tablet 10 mg PO TID PRN (Reason: pain) Qty: 14 RF: 0 ondansetron 4 mg tablet,disintegrating 4 mg PO Q6H PRN (Reason: nausea and vomiting) Qty: 20 RF: 0 No Action albuterol sulfate 90 mcg/actuation HFA aerosol inhaler 1 puff INHALATION Q4-6H PRN (Reason: asthma) Qty: 18 RF: 1 Nexplanon 68 mg Implant 68 mg Subdermal .ONCE RF: 0 Referrals: Su Jimenez MD [Primary Care Provider] - Stand Alone Forms: Work Release Note <Lois Alfredo DO - Last Filed: 06/16/19 19:21> Cosign ED Attending Cosignature Attestation: I was immediately available in the department for consultation. This documentation has been reviewed and I agree with assessment and plan. Supervised by Lois Alfredo DO
[2019-06-16] MEDS: KETOROLAC 60 MG/2 ML VIAL 30 MG IV (18:58)
[2019-06-16 19:23] VITALS: BP 126/85; PULSE 89; RESP 17; O2SAT 99
--- NOTE | 2019-06-24 20:44 | PC.NURSE ---
Ns Bolus complete at 1900 06/16/19, 1000ml total volume inf
== END 2019-06-16 19:23 | disposition home or self-care (01) ==
PROVIDERS: Emergency Provider Nurse Practitioner Family; Family Provider Specialist; PCP Specialist
DX: N39.0 Urinary tract infection, site not specified (principal); N83.201 Unspecified ovarian cyst, right side
CPT/HCPCS: 36591; 76856; 80053; 81003; 81015; 81025; 82150; 83690; 85025; 87077; 87086; 87147; 96361; 96374; 96375; 96376; 99282; 99284; J1885; J2270; J2405

== ENCOUNTER 2019-09-22 13:45 | Outpatient (RCR) | payer OTHER, MEDICAID, SELFPAY ==
--- NOTE | 2019-09-13 16:00 | PT.OIE ---
Current Diagnoses Dyspareunia not due to a substance or known physiological condition (09/13/19) Stress incontinence (female) (male) (09/13/19) Pelvic and perineal pain (09/13/19) Past Medical History (Last Updated 07/28/19 @ 09:59 by Su Jimenez MD) Asthma (Chronic) Chronic pelvic pain in female (Acute) Condyloma acuminata of vulva during (Inactive) Migraine headache (Chronic) Sprain of right shoulder (Resolved) Vaginal delivery (Resolved) Past Surgical History (Last Reviewed 06/16/19 @ 18:32 by Lois Jones [facility]) Hx of cholecystectomy (Resolved) Hx of tonsillectomy (Resolved) Hx of wisdom tooth extraction (Resolved) Visit Care Team Role Provider Type Su Jimenez MD Attending Provider Physician Specialty: BEER MERCHANT Address: [address] [place] [address] Email: [email or web address] Physical Therapy Initial Evaluation PT-OP-A Visit Information Start: 09/13/19 07:32 Freq: Status: Active Protocol: Document 09/13/19 13:00 AMB (Rec: 09/18/19 11:59 AMB [email or web address]) Out-Patient Physical Therapy Visit Information Visit Information Visit Type Initial Evaluation Visit Start Time 13:00 Visit Stop Time 13:45 Total Visit Minutes 45 Visit Number 1 PT-OP-B Current Condition Start: 09/13/19 07:32 Freq: Status: Active Protocol: Document 09/13/19 13:00 AMB (Rec: 09/18/19 11:59 AMB [email or web address]) Current Condition History of Current Condition Onset Date 5+ years ago Current Complaints right sided lower abdominal pain History of Current Condition Lizzette reports lower abdominal pain that has been worsening for years. Currently she states the pain is constant, but flares up 2- 3x/day for about 30 minutes. She also reports stress urinary incontinence and dyspareunia. The incontinence has been present since puberty and the dyspareunia has been present since she became sexually active. She has a 1 year old and felt that her pain was slightly less intense when she was , but now is worse. The 1 year old was born vaginally without tearing, she was induced. She also notes frequent urination- needing to go every 1.5-2 hours, does note that running water is a trigger for her. She had her gall bladder removed in 2017 and felt that that helped her abdominal pain for about 2 months but then the pain came back. Now she has multiple bowel movements per day, and also has urgency with bowel movements so that she has about 2 minutes warning before she has to go. She did go to the ER because of the pain, and was diagnosed with an ovarian cyst, but it started shrinking by the time she saw her OBGYN, so they did not think that was the cause of her pain. She has not been tested for endometriosis yet, but that might be the next step. Treatment Goals Patient/Caregiver Goals Reduce pain Prior Functional Status Baseline Function- ADL's Independent Current Functional Impairments (Reported) Functional Limitations- ADL's Urinary and bowel movement frequency, stress incontinence , dyspareunia, abdominal pain that limits her ability to play with her son, eat, walk Personal Factors Other Personal Factors That May Effect Depression, back pain Therapy/Recovery PT-OP-C Subjective Start: 09/13/19 07:32 Freq: Status: Active Protocol: Document 09/13/19 13:00 AMB (Rec: 09/18/19 11:59 AMB [email or web address]) Patient Questionnaires Pelvic Pain and Urgency/Frequency Patient Symptom Scale Pelvic Pain Score 16 OP-PT Pain Assessment Location Abdomen Pain Location Details right sided Intensity 7 Scale Used Numeric (1 - 10) PT-OP-I Pelvic Floor Start: 09/13/19 07:32 Freq: Status: Active Protocol: Document 09/13/19 13:00 AMB (Rec: 09/18/19 11:59 AMB [email or web address]) Pelvic Floor Assessment Urine Pelvic Floor Surgery No Urinary Symptoms Pain Leakage Size Small Leakage Cause Exercise,Sneeze Other Leakage Causes intercourse Leaks Per Day constant Voiding Frequency every 1.5-2 hours Nocturia 1 Urine Pad Type Panty Liner Bowel Bowel Symptoms Uncontrolled Flatulence Bowel Movement Frequency 2-3x/day Pelvic Clock Pelvic Clock 12-3 Tenderness Pelvic Clock 3-6 Tenderness Pelvic Clock 6-9 Guarding,Hypertonic,Tenderness ,Tightness Pelvic Clock 9-12 Guarding,Hypertonic,Tenderness ,Tightness Perineal Descent Resting Absent Bearing Absent Contraction Ability Voluntary Contraction Weak Voluntary Relaxation Absent Manual Muscle Testing Left 2 Manual Muscle Testing Right 2 Manual Muscle Testing Anterior 2 Manual Muscle Testing Posterior 2 Comments Pelvic Floor Comments Palpation throughout abdomen: tenderness worse on R side, but tender throughout abdomen. PT-OP-T Assessment and Plan Start: 09/13/19 07:32 Freq: Status: Active Protocol: Document 09/13/19 13:00 AMB (Rec: 09/18/19 11:59 AMB [email or web address]) Physical Therapy Assessment Rehab Potential Rehabilitation Potential Good Evaluation Complexity Number of Personal Factors/Comorbidities 1-2 Number of Body Systems Impaired 4 or More Clinical Presentation at Evaluation Evolving Impairments Impairments Functional Activities,Pain, Soft Tissue Mobility,Strength Goals Three Impairment Stress incontinence Short Term Goal (STG) Lizzette will improve her pelvic floor strength so that she can remain continent while walking around her home. STG Duration 4 weeks Long-Term Goal (LTG) Lizzette will improve her pelvic floor strength so that she does not leak while sneezing. LTG Duration 8 weeks Two Impairment Dyspareunia Short Term Goal (STG) Lizzette will use a M sized dilator without an increase in pain. STG Duration 4 weeks One Impairment Abdominal pain Short Term Goal (STG) Lizzette will decrease the frequency of her abdominal pain to 1 flare/day. STG Duration 4 weeks Pattern Marking Supervisor Goal (LTG) Lizzette will be independent with a HEP of stretching and self myofascial release to reduce the frequency of her abdominal pain. LTG Duration 8 weeks Assessment Summary Assessment Lizzette presents to PT with multiple concerns. Her biggest concern is her lower abdominal pain, but dyspareunia, fecal frequency and urgency, and stress urinary incontinence all play a role in her dysfunction. She presents to PT with pelvic floor tightness and pain, so we will start there, along with her abdominal tenderness. Then we will work into gentle strengthening without increasing her tone. Likely follow up with OBGYN at the end of PT. Physical Therapy Plan Frequency and Duration Frequency of Treatment 1x/Week Duration of Treatment 8 weeks Plan of Care Start Date 09/13/19 Plan of Care End Date 11/08/19 Therapeutic Interventions Therapeutic Interventions Home Exercise Program,Manual Therapy,Neuromuscular Re- education,Self-Care/Home Management,Soft Tissue Mobilization,Therapeutic Activities,Therapeutic Exercises Modalities Biofeedback,Electric Stimulation Next Visit Focus/Plan Next Note Type Treatment Note Next Visit Plan Can try biofeedback, NMES and dilator. Instructed in abdominal self massage. Will want to focus on relaxation, hip/ abdominal opening, but then will also need to incorporate pelvic floor strengthening due to stress incontinence and fecal urgency
--- NOTE | 2019-09-22 16:08 | PT.OTN ---
Current Diagnoses Dyspareunia not due to a substance or known physiological condition (09/22/19) Stress incontinence (female) (male) (09/22/19) Pelvic and perineal pain (09/22/19) Physical Therapy Treatment Note PT-OP-A Visit Information Start: 09/13/19 07:32 Freq: Status: Active Protocol: Document 09/22/19 13:45 AMB (Rec: 09/22/19 14:32 AMB [email or web address]) Out-Patient Physical Therapy Visit Information Visit Information Visit Type Treatment Note Visit Start Time 13:45 Visit Stop Time 14:30 Total Visit Minutes 45 Visit Number 2 PT-OP-B Current Condition Start: 09/13/19 07:32 Freq: Status: Active Protocol: Document 09/13/19 13:00 AMB (Rec: 09/18/19 11:59 AMB [email or web address]) Current Condition History of Current Condition Onset Date 5+ years ago Current Complaints right sided lower abdominal pain History of Current Condition Lizzette reports lower abdominal pain that has been worsening for years. Currently she states the pain is constant, but flares up 2- 3x/day for about 30 minutes. She also reports stress urinary incontinence and dyspareunia. The incontinence has been present since puberty and the dyspareunia has been present since she became sexually active. She has a 1 year old and felt that her pain was slightly less intense when she was , but now is worse. The 1 year old was born vaginally without tearing, she was induced. She also notes frequent urination- needing to go every 1.5-2 hours, does note that running water is a trigger for her. She had her gall bladder removed in 2017 and felt that that helped her abdominal pain for about 2 months but then the pain came back. Now she has multiple bowel movements per day, and also has urgency with bowel movements so that she has about 2 minutes warning before she has to go. She did go to the ER because of the pain, and was diagnosed with an ovarian cyst, but it started shrinking by the time she saw her OBGYN, so they did not think that was the cause of her pain. She has not been tested for endometriosis yet, but that might be the next step. Treatment Goals Patient/Caregiver Goals Reduce pain Prior Functional Status Baseline Function- ADL's Independent Current Functional Impairments (Reported) Functional Limitations- ADL's Urinary and bowel movevement frequency, stress incontinence , dyspareunia, abdominal pain that limits her ability to play with her son, eat, walk Personal Factors Other Personal Factors That May Effect Depression, back pain Therapy/Recovery PT-OP-C Subjective Start: 09/13/19 07:32 Freq: Status: Active Protocol: Document 09/22/19 13:45 AMB (Rec: 09/22/19 14:32 AMB [email or web address]) OP-PT Subjective Patient Comments Patient Comments Pt reports the dilator did not increase her pain but did make her need to have a bowel movement. PT-OP-I Pelvic Floor Start: 09/13/19 07:32 Freq: Status: Active Protocol: Document 09/13/19 13:00 AMB (Rec: 09/18/19 11:59 AMB [email or web address]) Pelvic Floor Assessment Urine Pelvic Floor Surgery No Urinary Symptoms Pain Leakage Size Small Leakage Cause Exercise,Sneeze Other Leakage Causes intercourse Leaks Per Day constant Voiding Frequency every 1.5-2 hours Nocturia 1 Urine Pad Type Panty Liner Bowel Bowel Symptoms Uncontrolled Flatulence Bowel Movement Frequency 2-3x/day Pelvic Clock Pelvic Clock 12-3 Tenderness Pelvic Clock 3-6 Tenderness Pelvic Clock 6-9 Guarding,Hypertonic,Tenderness ,Tightness Pelvic Clock 9-12 Guarding,Hypertonic,Tenderness ,Tightness Perineal Descent Resting Absent Bearing Absent Contraction Ability Voluntary Contraction Weak Voluntary Relaxation Absent Manual Muscle Testing Left 2 Manual Muscle Testing Right 2 Manual Muscle Testing Anterior 2 Manual Muscle Testing Posterior 2 Comments Pelvic Floor Comments Palpation throughout abdomen: tenderness worse on R side, but tender throughout abdomen. PT-OP-Q Treatments Start: 09/13/19 07:32 Freq: Status: Active Protocol: Document 09/22/19 13:45 AMB (Rec: 09/22/19 16:07 AMB [email or web address]) Therapeutic Exercises Supine Exercises 5 Supine Exercise Name 10 second holds with NMES Comments hooklying 4 Supine Exercise Name adductor stretch Reps/Minutes 30x3 3 Supine Exercise Name hamstring stretch Reps/Minutes 30x2 2 Supine Exercise Name hip flexor stretch Reps/Minutes 30x2 1 Supine Exercise Name happy baby stretch Reps/Minutes 30x2 Manual Therapy Treatment Soft Tissue Mobilization 2 Body Location internal levator ani Comments not significantly painful today bilaterally 1 Body Location low abdomen Mobilization Type Myofascial Release Comments superior MFR over central abdomen, large intestine massage PT-OP-T Assessment and Plan Start: 09/13/19 07:32 Freq: Status: Active Protocol: Document 09/22/19 13:45 AMB (Rec: 09/22/19 16:07 AMB [email or web address]) Physical Therapy Assessment Assessment Summary Assessment Dilator not really working well for patient. Pt has been trying to do Kegels but is quite weak. NMES may have been helpful, try biofeedback next visit. Physical Therapy Plan Next Visit Focus/Plan Next Note Type Treatment Note Next Visit Plan Can try biofeedback, NMES and dilator. Instructed in abdominal self massage. Will want to focus on relaxation, hip/ abdominal opening, but then will also need to incorporate pelvic floor strengthening due to stress incontinence and fecal urgency
--- NOTE | 2019-11-04 09:30 | PT.OPDS ---
Current Diagnoses Dyspareunia not due to a substance or known physiological condition (09/22/19) Stress incontinence (female) (male) (09/22/19) Pelvic and perineal pain (09/22/19) Visit Care Team Role Provider Type Su Jimenez MD Attending Provider Physician Specialty: BUSINESS PROCESS MANAGER Address: [address] [place] [address], [id number] Email: [email or web address] Visit Number Visit Number 2 Discharge Summary PT-OP-B Current Condition Start: 09/13/19 07:32 Freq: Status: Active Protocol: Document 09/13/19 13:00 AMB (Rec: 09/18/19 11:59 AMB [email or web address]) Current Condition History of Current Condition Onset Date 5+ years ago Current Complaints right sided lower abdominal pain History of Current Condition Lizzette reports lower abdominal pain that has been worsening for years. Currently she states the pain is constant, but flares up 2- 3x/day for about 30 minutes. She also reports stress urinary incontinence and dyspareunia. The incontinence has been present since puberty and the dyspareunia has been present since she became sexually active. She has a 1 year old and felt that her pain was slightly less intense when she was , but now is worse. The 1 year old was born vaginally without tearing, she was induced. She also notes frequent urination- needing to go every 1.5-2 hours, does note that running water is a trigger for her. She had her gall bladder removed in 2017 and felt that that helped her abdominal pain for about 2 months but then the pain came back. Now she has multiple bowel movements per day, and also has urgency with bowel movements so that she has about 2 minutes warning before she has to go. She did go to the ER because of the pain, and was diagnosed with an ovarian cyst, but it started shrinking by the time she saw her OBGYN, so they did not think that was the cause of her pain. She has not been tested for endometriosis yet, but that might be the next step. Treatment Goals Patient/Caregiver Goals Reduce pain Prior Functional Status Baseline Function- ADL's Independent Current Functional Impairments (Reported) Functional Limitations- ADL's Urinary and bowel movevement frequency, stress incontinence , dyspareunia, abdominal pain that limits her ability to play with her son, eat, walk Personal Factors Other Personal Factors That May Effect Depression, back pain Therapy/Recovery PT-OP-C Subjective Start: 09/13/19 07:32 Freq: Status: Active Protocol: Document 09/22/19 13:45 AMB (Rec: 09/22/19 14:32 AMB [email or web address]) OP-PT Subjective Patient Comments Patient Comments Pt reports the dilator did not increase her pain but did make her need to have a bowel movement. PT-OP-I Pelvic Floor Start: 09/13/19 07:32 Freq: Status: Active Protocol: Document 09/13/19 13:00 AMB (Rec: 09/18/19 11:59 AMB [email or web address]) Pelvic Floor Assessment Urine Pelvic Floor Surgery No Urinary Symptoms Pain Leakage Size Small Leakage Cause Exercise,Sneeze Other Leakage Causes intercourse Leaks Per Day constant Voiding Frequency every 1.5-2 hours Nocturia 1 Urine Pad Type Panty Liner Bowel Bowel Symptoms Uncontrolled Flatulence Bowel Movement Frequency 2-3x/day Pelvic Clock Pelvic Clock 12-3 Tenderness Pelvic Clock 3-6 Tenderness Pelvic Clock 6-9 Guarding,Hypertonic,Tenderness ,Tightness Pelvic Clock 9-12 Guarding,Hypertonic,Tenderness ,Tightness Perineal Descent Resting Absent Bearing Absent Contraction Ability Voluntary Contraction Weak Voluntary Relaxation Absent Manual Muscle Testing Left 2 Manual Muscle Testing Right 2 Manual Muscle Testing Anterior 2 Manual Muscle Testing Posterior 2 Comments Pelvic Floor Comments Palpation throughout abdomen: tenderness worse on R side, but tender throughout abdomen. PT-OP-T Assessment and Plan Start: 09/13/19 07:32 Freq: Status: Active Protocol: Document 11/04/19 09:25 AMB (Rec: 11/04/19 09:30 AMB [email or web address]) Physical Therapy Assessment Assessment Summary Assessment Lizzette had exploratory laparoscopy to check for endometriosis which was negative on 10/24. Given that she has had a surgery and continues to feel post-op pain and feels she is not ready for physical therapy at this time, she would need a new referral to return to PT. She attended 2 visits of PT including evaluation, therefore she did not meet any of her goals.
== END 2019-11-07 11:07 ==
LOC: PHYS 13:45
PROVIDERS: Visit Provider Specialist
DX: R10.2 Pelvic and perineal pain (principal); N39.3 Stress incontinence (female) (male); F52.6 Dyspareunia not due to a substance or known physiological condition
CPT/HCPCS: 97110; 97140; 97162

== ENCOUNTER 2019-10-24 13:36 | Day surgery (SDC) | payer OTHER, MEDICAID, SELFPAY ==
[2019-10-20 12:31] VITALS: BMI 30.9
[2019-10-24] VITALS (9 sets, daily range): BP systolic 93–117; BP diastolic 51–76; PULSE 66–100; RESP 12–20; TEMP 36–37; O2SAT 99–100; BMI 31.4
[2019-10-24] MEDS: LACTATED RINGERS 1,000 ML 100 ML IV (14:35)
--- NOTE | 2019-10-24 15:05 | PM.PREOP ---
Pre-operative Note Interval Note History & Physical reviewed/Exam performed by Physician: Yes Changes to H&P: No
--- NOTE | 2019-10-24 15:43 | SUR.OPER ---
Lithotomy on padded OR bed, head on pillow, arms secured on padded arm boards at <90 degrees abduction. Legs secured in padded yellow fins stirrups.
[2019-10-24] MEDS: BUPIVACAINE 0.5% W/ EPI (PF) 10 ML VIAL 30 ML INJ (15:46)
--- NOTE | 2019-10-24 16:12 | PM.OP.1 ---
Operative Date/Time/Diagnoses Date of procedure: 10/24/19 Time of procedure: 16:12 Pre-op diagnosis: Pelvic pain of unclear etiology Post-op diagnosis: same Procedure & Clinicians Procedure: Diagnostic laparoscopy Same procedure as scheduled: Yes Indications: Patient with longstanding pelvic pain concerned she might have endometriosis Surgeon: Su Jimenez Click Yes if Unassisted: Yes Anesthesia Type: General Operative Notes Findings: Normal tubes, ovaries, uterus. No endometriosis. No scar tissue. No internal hernias. Normal appendix. Normal bowel surface. Normal liver edge. Gallbladder dome not clearly visualized. Closure Type: primary Specimen(s): none sent Estimated Blood Loss (mL): 5 Blood products transfused: none Procedure in detail: Patient was brought to the operating room where she underwent general anesthesia. She was placed in low yellowfin stirrups and prepped and draped in usual sterile fashion. No antibiotics were indicated. Pulsatile stockings were in place and functional. Warming was with blankets. A single-tooth tenaculum was placed on the anterior lip of the cervix and the cervix dilated to #6 Hegar dilator. The Sun uterine manipulator was placed and balloon inflated with 3 mL of air. The area of the incisions were injected with half percent Marcaine with epinephrine. An incision was made in the umbilicus with a scalpel and the Verres needle placed in the abdomen. Confirmation of correct placement of the needle was performed by withdrawing on the syringe and then allowing fluid to fall freely through the needle. The abdomen was insufflated to 4 L of CO2. A 5 mm trocar was placed under direct visualization. A 5 mm trochars was placed in the right lower quadrant under direct visualization after incising the skin. There did not appear to be any damage with placement of the trocars. The abdomen was examined. The CO2 was allowed to escape from the abdomen. The trochars were removed. Skin was closed with 4-0 Vicryl. The patient went to recovery room in good condition. Complications: none Post-operative Condition: stable Disposition: same day surgery Plan for aftercare: Routine post laparoscopy.
[2019-10-24] MEDS: OXYCODONE/ACETAMINOPHEN 5/325 TABLET 1 TAB PO (16:34)
--- NOTE | 2019-10-24 17:12 | SUR.PHASEII ---
Belly soft no nausea, pt ready to go, left in stable condition
== END 2019-10-24 17:10 | disposition home or self-care (01) ==
PROVIDERS: Visit Provider Specialist
PROC: (CPT 49320; principal; 2019-10-24 15:30)
DX: R10.2 Pelvic and perineal pain (principal)
CPT/HCPCS: 49320; J1100; J1885; J2405; J2704

== ENCOUNTER 2020-12-18 15:49 | Emergency (ER) | payer OTHER, MEDICAID, SELFPAY ==
[2020-12-18 16:00] VITALS: BP 144/77; PULSE 85; RESP 22; TEMP 36.5; O2SAT 100; BMI 33.9
[2020-12-18 17:18] LABS: COVID19 -Nasal RAPID Negative (Negative)
--- NOTE | 2020-12-18 17:52 | DI.RAD.S_ITS ---
PROCEDURE: XR CHEST 1V INDICATIONS: Shortness of breath/cough TECHNIQUE: One view of the chest was acquired. COMPARISON: None. FINDINGS: Surgical changes and devices: None. Lungs and pleura: Lungs are clear. No pleural effusions or pneumothorax. Mediastinum: Mediastinal contours appear normal. Heart size is normal. Bones and chest wall: No suspicious bony lesions. Overlying soft tissues appear unremarkable. IMPRESSION: No acute cardiopulmonary pathology. Dictated by: Teo Dasilva M.D. on 12/18/2020 at 18:07 Approved by: Teo Dasilva M.D. on 12/18/2020 at 18:07
[2020-12-18] MEDS: ALBUTEROL/IPRATROPIUM 3 ML AMPUL INH (18:50)
[2020-12-18 18:51] VITALS: PULSE 89; RESP 14; O2SAT 98
--- NOTE | 2020-12-18 19:23 | ED_ITS ---
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 Initially she had mild fever small amount of vomiting and that improved after the 1st week. The dry cough has persisted since then. She does have a history of exercise-induced asthma worse when she was a child and does not typically use inhalers. She also describes fairly significant reflux concurrent with the cough, it is unclear which actually came 1st. She describes no palpitations, no overt dyspnea, she notes significant fatigue secondary to sleep deprivation from the dramatic cough worse at night. She has had no abdominal pain, diarrhea, constipation, urinary symptoms. She notes that she has been able to eat and drink without difficulty and as the sleep deprivation worsen she has had slightly worsened headaches. Related Data Home Medications Medication Instructions Recorded Confirmed Nexplanon 68 mg SUBDERMAL .ONCE 02/04/19 07/09/20 Previous Rx's Medication Instructions Recorded albuterol sulfate 90 mcg/actuation 1 puff INHALATION Q4-6H PRN #18 03/12/20 aerosol inhaler gram hydroxyzine pamoate 25 mg capsule 25 mg PO BID PRN #90 cap 03/12/20 buspirone 7.5 mg tablet 7.5 mg PO BID #60 tab 06/04/20 albuterol sulfate [ProAir HFA] 2 puff INHALATION Q6H PRN #8.5 g 12/18/20 benzonatate 100 mg PO TID PRN #14 cap 12/18/20 omeprazole 20 mg PO DAILY #30 cap 12/18/20 prednisone 40 mg PO DAILY #10 tab 12/18/20 Allergies Allergy/AdvReac Type Severity Reaction Status Date / Time adhesive Allergy Mild Rash Verified 07/09/20 09:07 azithromycin [From Zithromax] Allergy Mild Hives Verified 07/09/20 09:07 beeswax Allergy Mild Rash Verified 07/09/20 09:07 clindamycin Allergy Mild Hives Verified 07/09/20 09:07 latex Allergy Hives, Verified 07/09/20 09:07 blisters Review of Systems Review of Systems ROS Unobtainable: All systems reviewed & are unremarkable except as noted in HPI and below Patient History Medical History Anxiety (04/2019) Asthma Chronic pelvic pain in female Condyloma acuminata of vulva during Exercise-induced asthma Migraine headache Multiple skin nodules (01/2020) Panic attack (04/2019) Sprain of right shoulder Vaginal delivery Surgical History History of incision and drainage (02/09/19) Hx of cholecystectomy Hx of tonsillectomy Hx of wisdom tooth extraction Family History Father Hypertension Diabetes mellitus Mother Diabetes mellitus Grandmother Heart disease Gallstones Hypertension Grandfather Hypertension Heart disease Stroke Social History household members: family and children Smoking Status: Never smoker alcohol intake: current Smoking Status: Never smoker alcohol intake frequency: holidays/special occasions only Substance Use Type: does not use Exam Narrative Exam Narrative: General: Fatigued appearing, coughing but no acute distress. Able to give a complete and coherent history. HEENT: Moist mucous membranes, normal sclera with reactive pupils, Neck: No cervical adenopathy, supple Respiratory: Lungs with minor scattered wheezes all lung sim clearing nicely after nebulized treatment. No rales no rhonchi. Full and symmetrical air movement Cardiac: Regular rate and rhythm no murmurs no bruits Abdomen: Soft, nontender, good bowel tones, no flank pain Skin: Warm and dry, no rashes Neurologic: Grossly neurologically intact with no obvious asymmetries or abnormalities Extremities: No trauma, well perfused Psych: Cooperative, appropriate insight and affect Initial Vital Signs Initial Vital Signs: Vital Signs Temperature 97.7 F 12/18/20 16:00 Pulse Rate 85 12/18/20 16:00 Respiratory Rate 22 12/18/20 16:00 Blood Pressure 144/77 H 12/18/20 16:00 Pulse Oximetry 100 12/18/20 16:00 Course Orders Ordered: ED Orders 12/18/20 16:04 EKG-12 Lead Stat 12/18/20 16:22 COVID19 Stat 12/18/20 17:52 XR chest 1V Stat Discontinued Medications Albuterol/Ipratropium (Albuterol/Ipratropium 3 Ml Ampul) 3 ml INH NOW ONE Stop: 12/18/20 18:40 Last Admin: 12/18/20 18:50 Dose: 3 ml Documented by: VIKRAM Oxycodone/Acetaminophen (Oxycodone/Acetaminophen 5/325 Tablet) 1 tab PO NOW ONE Stop: 12/18/20 19:35 Last Admin: 12/18/20 19:45 Dose: 1 tab Documented by: Pantoprazole Sodium (Pantoprazole 20 Mg Tablet) 20 mg PO NOW ONE Stop: 12/18/20 19:35 Last Admin: 12/18/20 19:45 Dose: 20 mg Documented by: Prednisone (Prednisone 20 Mg Tablet) 60 mg PO NOW ONE Stop: 12/18/20 19:35 Last Admin: 12/18/20 19:45 Dose: 60 mg Documented by: Vital Signs Vital signs: Vital Signs - 8 hr 12/18/20 16:00 12/18/20 18:51 Temperature 97.7 F Pulse Rate 85 89 Respiratory Rate 22 14 Blood Pressure 144/77 H Pulse Oximetry 100 98 Medical Decision Making Lab Data Labs: Lab Results 12/18/20 Range/Units 16:22 SARS-CoV-2 (PCR) Negative (Negative) Imaging Data Chest x-ray: Radiologist's Impression: FINDINGS: Surgical changes and devices: None. Lungs and pleura: Lungs are clear. No pleural effusions or pneumothorax. Mediastinum: Mediastinal contours appear normal. Heart size is normal. Bones and chest wall: No suspicious bony lesions. Overlying soft tissues appear unremarkable. IMPRESSION: No acute cardiopulmonary pathology. Dictated by: Teo Dasilva M.D. on 12/18/2020 at 18:07 ECG Data Attestation: I personally reviewed and interpreted this ECG as follows: Interpretation: Sinus rhythm at 67 Normal intervals, normal axis No acute ischemic changes MDM Narrative Medical decision making narrative: 25-year-old woman with persistent dry cough. Chest x-ray is unremarkable on exam is relatively benign. The fact that she improved nicely with a nebulizer suggests this likely is a reactive airway component. At this point there is no active viral or bacterial etiology suspected. I do not suspect any cardiac issues and she has no pneumothorax or c onsolidated findings on chest X-ray. Will have her continue 5 days of steroids, 40 mg of prednisone daily. Use her albuterol inhaler with spacer every 6 hours as needed, 2 puffs. Also try addressing her reflux with 20 mg of omeprazole and see if this influences her cough as well. Finally Tessalon for symptomatic control with the others treatments are not effective. Did ask her to follow-up with her primary care physician in a week. Discharge Plan Departure Patient Disposition: Home Clinical Impression: Cough Reactive airway disease Qualifiers: Asthma severity: mild Asthma persistence: intermittent Asthma complication type: with acute exacerbation Qualified Code(s): J45.21 - Mild intermittent asthma with (acute) exacerbation Acid reflux Qualifiers: Esophagitis presence: esophagitis presence not specified Qualified Code(s): K21.9 - Gastro-esophageal reflux disease without esophagitis Instructions: DI for Gastroesophageal Reflux Disease (GERD), DI for Reactive Airway Disease-Adult Activity Restrictions/Additional Instructions: Thank you for coming in today I suspect that you started all of this with a viral syndrome. Your COVID test was negative today and there is no evidence of continued virus or bacterial infection (like a pneumonia). With the dry irritating cough, the most likely explanation is mild reactive airway disease persisting after the upper respiratory infection. With the severity of the heartburn that you are describing, any acid into your lungs at all can also make you cough like this. For the reactive airway, please use 2 puffs of albuterol with spacer every 6 hours. I would also like you to complete a 5 day course of steroids at 40 mg a day. For the heartburn, please complete a 30 day trial of omeprazole and elevate the head of your bed a couple of inches as we discussed. Purely for symptomatic control of your cough, you can try the Tessalon [place] Prescriptions have all been electronically transmitted to [facility] in [place] for you Please schedule an appointment with Ms. Dahl for next week to make sure that you are actually truly improving. If you find that you are getting worse, please return to the ER Prescriptions: New albuterol sulfate [ProAir HFA] 90 mcg/actuation HFA aerosol inhaler 2 puff inhalation Q6H PRN (Reason: shortness of breath or wheezing) Qty: 8.5 RF: 0 benzonatate 100 mg capsule 100 mg PO TID PRN (Reason: cough) Qty: 14 RF: 0 prednisone 20 mg tablet 40 mg PO DAILY Qty: 10 RF: 0 omeprazole 20 mg capsule,delayed release(DR/EC) 20 mg PO DAILY Qty: 30 RF: 0 No Action buspirone 7.5 mg tablet 7.5 mg PO BID Qty: 60 RF: 0 albuterol sulfate 90 mcg/actuation HFA aerosol inhaler 1 puff INHALATION Q4-6H PRN (Reason: asthma) Qty: 18 RF: 1 hydroxyzine pamoate 25 mg capsule 25 mg PO BID PRN (Reason: anxiety, panic) Qty: 90 RF: 0 Nexplanon 68 mg Implant 68 mg Subdermal .ONCE RF: 0 Referrals: Lai Dahl ARNP [Primary Care Provider] -
[2020-12-18] MEDS: predniSONE 20 MG TABLET 60 MG PO (19:45)
[2020-12-18] MEDS: PANTOPRAZOLE 20 MG TABLET PO (19:45)
[2020-12-18] MEDS: OXYCODONE/ACETAMINOPHEN 5/325 TABLET 1 TAB PO (19:45)
[2020-12-18 20:02] VITALS: BP 128/65; PULSE 97; O2SAT 100
== END 2020-12-18 20:02 | disposition home or self-care (01) ==
PROVIDERS: Emergency Medicine; Emergency Provider Emergency Medicine; PCP Nurse Practitioner Family
DX: R05 Cough (principal); J45.21 Mild intermittent asthma with (acute) exacerbation; K21.9 Gastro-esophageal reflux disease without esophagitis; R07.9 Chest pain, unspecified; R50.9 Fever, unspecified; Z20.822 Contact with and (suspected) exposure to COVID-19
CPT/HCPCS: 71045; 87635; 93005; 93010; 94640; 99281; 99284; C9803

== ENCOUNTER → 2021-07-11 08:23 | Outpatient (CLI) | payer OTHER, MEDICAID, SELFPAY ==
[2021-07-11] MEDS: COVID-19 VACC #1, MRNA(MOD) 100 MCG/0.5 ML VIAL IM (12:30)
== END ==
PROVIDERS: PCP Nurse Practitioner Family; Referring Provider Internal Medicine; Visit Provider Internal Medicine
DX: Z23 Encounter for immunization (principal)
CPT/HCPCS: 0011A; 91301

== ENCOUNTER → 2021-07-26 09:11 | Outpatient (CLI) | payer OTHER, MEDICAID, SELFPAY ==
[2021-07-26 11:03] LABS: COVID19 -Nasal RAPID Negative (Negative)
== END ==
PROVIDERS: PCP Nurse Practitioner Family; Visit Provider Nurse Practitioner
DX: Z20.822 Contact with and (suspected) exposure to COVID-19 (principal)
CPT/HCPCS: 87635; C9803

== ENCOUNTER → 2021-08-01 09:02 | Outpatient (CLI) | payer OTHER, MEDICAID, SELFPAY ==
[2021-08-01 09:54] LABS: COVID19 -Nasal RAPID Negative (Negative)
== END ==
PROVIDERS: PCP Nurse Practitioner Family; Visit Provider Nurse Practitioner
DX: Z20.822 Contact with and (suspected) exposure to COVID-19 (principal)
CPT/HCPCS: 87635; C9803

== ENCOUNTER → 2021-08-08 12:19 | Outpatient (CLI) | payer OTHER, MEDICAID, SELFPAY ==
[2021-08-08] MEDS: COVID-19 VACC #2, MRNA(MOD) 100 MCG/0.5 ML VIAL IM (12:20)
== END ==
PROVIDERS: PCP Nurse Practitioner Family; Visit Provider Internal Medicine
DX: Z23 Encounter for immunization (principal)
CPT/HCPCS: 0012A; 91301

== ENCOUNTER 2021-12-03 10:04 | Emergency (ER) | payer OTHER, MEDICAID, SELFPAY ==
[2021-12-03] VITALS (10 sets, daily range): BP systolic 111–144; BP diastolic 56–99; PULSE 70–94; RESP 18; TEMP 36.3; O2SAT 95–99; BMI 34.6
--- NOTE | 2021-12-03 12:11 | ED_ITS ---
HPI - Headache <RENZO Jo - Last Filed: 12/03/21 17:47> General Chief Complaint: Headache Stated Complaint: Severe migraine- fatigue, 5 days getting worse Time Seen by Provider: 12/03/21 12:10 Mode of arrival: Ambulatory History of Present Illness HPI Narrative: Is a 26-year-old female presents to the emergency department for headache which has been ongoing for 5 days in worsening each day. Patient is taking multiple COVID test at home which have all been negative. Patient denies any recent fever, endorses some mild is spots in her vision today, states she has a headache history without a formal migraine diagnosis. She had a spinal epidural during her with a CSF leak and required blood patch but has only had 1 or 2 bad headache since that 3 years ago. Patient denies vomiting although endorses nausea. States this is 1 of her worst headaches to date. She is a nonsmoker, she is on control, she denies any shortness of breath, chest pain, difficulty breathing, upper respiratory symptoms including congestion and cough. Related Data Previous Rx's Medication Instructions Recorded albuterol sulfate 90 mcg/actuation 1 puff INHALATION Q4-6H PRN #18 03/12/20 aerosol inhaler gram albuterol sulfate 90 mcg/actuation 2 puff INHALATION Q6H PRN #8.5 g 12/18/20 aerosol inhaler (ProAir HFA) norethindrone (contraceptive) 0.35 0.35 mg PO DAILY #28 tab 09/11/21 mg tablet sumatriptan succinate 50 mg tablet 50 mg PO Q2-4H PRN #10 tab 12/03/21 Allergies Allergy/AdvReac Type Severity Reaction Status Date / Time adhesive Allergy Mild Rash Verified 09/11/21 16:10 azithromycin [From Zithromax] Allergy Mild Hives Verified 09/11/21 16:10 beeswax Allergy Mild Rash Verified 09/11/21 16:10 clindamycin Allergy Mild Hives Verified 09/11/21 16:10 latex Allergy Hives, Verified 09/11/21 16:10 blisters Review of Systems <RENZO Jo - Last Filed: 12/03/21 17:47> Review of Systems Narrative: General: denies fever, chills Head/Neck: Endorses headache with photophobia, denies neck pain or rigidity Eyes: denies visual changes, eye pain Cardio: denies chest pain, palpitations Respiratory: denies shortness of breath, cough GI: denies abdominal pain, nausea, vomiting, or diarrhea : denies dysuria, hematuria MSK: denies joint pain, muscle weakness Skin: denies rash, itching Neuro: denies numbness, tingling Patient History <RENZO Jo - Last Filed: 12/03/21 17:47> Medical History Anxiety (04/2019) Asthma Chronic pelvic pain in female Condyloma acuminata of vulva during Diverticulosis (08/2021) Exercise-induced asthma Migraine headache Multiple skin nodules (01/2020) Panic attack (04/2019) Sprain of right shoulder Vaginal delivery Surgical History History of incision and drainage (02/09/19) Hx of cholecystectomy Hx of tonsillectomy Hx of wisdom tooth extraction Family History Father Hypertension Diabetes mellitus Mother Diabetes mellitus Grandmother Heart disease Gallstones Hypertension Grandfather Hypertension Heart disease Stroke Social History household members: family and children Smoking Status: Never smoker alcohol intake: current Smoking Status: Never smoker alcohol intake frequency: holidays/special occasions only Substance Use Type: does not use Exam <RENZO Jo - Last Filed: 12/03/21 17:47> Narrative Exam Narrative: Independently reviewed vitals signs and nursing notes. General: Awake, alert, well-nourished and developed, nontoxic, no cardiorespiratory distress Head/Neck: Atraumatic, neck full range of motion, trachea midline, no JVD or lymphadenopathy. Supple, nontender, no meningeal signs. Eyes: Pupils equal round and reactive, EOMI, conjunctiva normal, no scleral icterus or injections Nose: nares patent, no rhinorrhea, without purulent drainage or septal hematoma. Mouth/Throat: uvula midline, moist mucus membranes, posterior pharynx normal, no oral lesions, airway patent Cardio: Regular rate and rhythm, no peripheral edema Respiratory: respirations unlabored without wheezing, stridor, or rales. No retractions. GI: Abdomen soft, nontender, nondistended, no hepato-spenomegaly MSK: Moves all extremities, neurovascularly intact, no flank tenderness Skin: Normal capillary refill, no rash Neuro: Normal speech and cognition, normal gait, A&O x3 Initial Vital Signs Initial Vital Signs: Vital Signs Temperature 97.3 F L 12/03/21 11:17 Pulse Rate 83 12/03/21 11:17 Respiratory Rate 18 12/03/21 11:17 Blood Pressure 144/99 H 12/03/21 11:17 Pulse Oximetry 98 12/03/21 11:17 <Debby Altamirano DO - Last Filed: 12/03/21 19:50> Initial Vital Signs Initial Vital Signs: Vital Signs Temperature 97.3 F L 12/03/21 11:17 Pulse Rate 83 12/03/21 11:17 Respiratory Rate 18 12/03/21 11:17 Blood Pressure 144/99 H 12/03/21 11:17 Pulse Oximetry 98 12/03/21 11:17 Course <RENZO Jo - Last Filed: 12/03/21 17:47> Orders Ordered: ED Orders 12/03/21 12:39 Complete Blood Count AUTO DIFF Stat Comprehensive Metabolic Panel Stat 12/03/21 12:40 Urinalysis and Microscopic Stat Discontinued Medications Acetaminophen (Acetaminophen 325 Mg Tablet) 650 mg PO NOW ONE Stop: 12/03/21 14:52 Last Admin: 12/03/21 15:05 Dose: 650 mg Documented by: MADELINE Dexamethasone (Dexamethasone 10 Mg/Ml Vial) 10 mg IV NOW ONE Stop: 12/03/21 12:23 Last Admin: 12/03/21 13:54 Dose: 10 mg Documented by: BTONER Diphenhydramine HCl (Diphenhydramine 50 Mg/Ml Vial) 25 mg IV NOW ONE Stop: 12/03/21 12:23 Last Admin: 12/03/21 13:54 Dose: 25 mg Documented by: BTONER Sodium Chloride (Normal Saline 0.9%) 1,000 mls @ 1,000 mls/hr IV BOLUS ONE Stop: 12/03/21 13:21 Last Infusion: 12/03/21 15:21 Dose: 0 mls/hr Documented by: Admin: 12/03/21 13:53 Dose: 1,000 mls/hr Documented by: SHAUNA Ketorolac Tromethamine (Ketorolac 30 Mg/Ml Vial) 15 mg IV NOW ONE Stop: 12/03/21 13:59 Last Admin: 12/03/21 14:09 Dose: 15 mg Documented by: SHAUNA Ondansetron HCl (Ondansetron 4 Mg/2 Ml Inj) 4 mg IV NOW ONE Stop: 12/03/21 12:23 Last Admin: 12/03/21 13:54 Dose: 4 mg Documented by: SHAUNA Prochlorperazine (Prochlorperazine 10 Mg/2 Ml Vial) 10 mg IV NOW ONE Stop: 12/03/21 14:52 Last Admin: 12/03/21 15:06 Dose: 10 mg Documented by: MADELINE Sumatriptan Succinate (Sumatriptan 6 Mg/0.5 Ml Vial) 6 mg SUBCUT NOW ONE Stop: 12/03/21 14:55 Last Admin: 12/03/21 15:06 Dose: 6 mg Documented by: MADELINE Vital Signs Vital signs: Vital Signs - 8 hr 12/03/21 13:00 12/03/21 13:01 12/03/21 13:30 Pulse Rate 86 74 76 Blood Pressure 127/68 121/64 Pulse Oximetry 98 98 97 12/03/21 14:00 12/03/21 14:30 12/03/21 14:52 Pulse Rate 70 82 76 Blood Pressure 115/66 116/56 L 117/63 Pulse Oximetry 99 98 99 12/03/21 15:00 12/03/21 15:06 12/03/21 15:30 Pulse Rate 80 88 94 H Blood Pressure 111/57 L 111/57 L 124/68 Pulse Oximetry 96 95 <Debby Altamirano DO - Last Filed: 12/03/21 19:50> Orders Ordered: ED Orders 12/03/21 12:39 Complete Blood Count AUTO DIFF Stat Comprehensive Metabolic Panel Stat 12/03/21 12:40 Urinalysis and Microscopic Stat Discontinued Medications Acetaminophen (Acetaminophen 325 Mg Tablet) 650 mg PO NOW ONE Stop: 12/03/21 14:52 Last Admin: 12/03/21 15:05 Dose: 650 mg Documented by: MADELINE Dexamethasone (Dexamethasone 10 Mg/Ml Vial) 10 mg IV NOW ONE Stop: 12/03/21 12:23 Last Admin: 12/03/21 13:54 Dose: 10 mg Documented by: SHAUNA Diphenhydramine HCl (Diphenhydramine 50 Mg/Ml Vial) 25 mg IV NOW ONE Stop: 12/03/21 12:23 Last Admin: 12/03/21 13:54 Dose: 25 mg Documented by: LUISONEJohn Sodium Chloride (Normal Saline 0.9%) 1,000 mls @ 1,000 mls/hr IV BOLUS ONE Stop: 12/03/21 13:21 Last Infusion: 12/03/21 15:21 Dose: 0 mls/hr Documented by: Admin: 12/03/21 13:53 Dose: 1,000 mls/hr Documented by: SHAUNA Ketorolac Tromethamine (Ketorolac 30 Mg/Ml Vial) 15 mg IV NOW ONE Stop: 12/03/21 13:59 Last Admin: 12/03/21 14:09 Dose: 15 mg Documented by: SHAUNA Ondansetron HCl (Ondansetron 4 Mg/2 Ml Inj) 4 mg IV NOW ONE Stop: 12/03/21 12:23 Last Admin: 12/03/21 13:54 Dose: 4 mg Documented by: SHAUNA Prochlorperazine (Prochlorperazine 10 Mg/2 Ml Vial) 10 mg IV NOW ONE Stop: 12/03/21 14:52 Last Admin: 12/03/21 15:06 Dose: 10 mg Documented by: MADELINE Sumatriptan Succinate (Sumatriptan 6 Mg/0.5 Ml Vial) 6 mg SUBCUT NOW ONE Stop: 12/03/21 14:55 Last Admin: 12/03/21 15:06 Dose: 6 mg Documented by: MADELINE Vital Signs Vital signs: Vital Signs - 8 hr 12/03/21 13:00 12/03/21 13:01 12/03/21 13:30 Pulse Rate 86 74 76 Blood Pressure 127/68 121/64 Pulse Oximetry 98 98 97 12/03/21 14:00 12/03/21 14:30 12/03/21 14:52 Pulse Rate 70 82 76 Blood Pressure 115/66 116/56 L 117/63 Pulse Oximetry 99 98 99 12/03/21 15:00 12/03/21 15:06 12/03/21 15:30 Pulse Rate 80 88 94 H Blood Pressure 111/57 L 111/57 L 124/68 Pulse Oximetry 96 95 MDM - Headache <Gabriella Clemons INVENTORY ADMINISTRATOR - Last Filed: 12/03/21 17:47> Lab Data Result diagrams: 12/03/21 12:39 12/03/21 12:39 Labs: Lab Results 12/03/21 12/03/21 12/03/21 Range/Units 12:39 12:39 12:40 WBC 10.0 (4.5-11.0) X10^3/uL RBC 4.77 (4.0-5.2) X10^6/uL Hgb 13.4 (12.0-16.0) g/dL Hct 40.2 (36-46) % MCV 84.3 (80-100) fL MCH 28.2 (26-34) PG MCHC 33.4 (30-36) % RDW 13.5 (11.6-14.8) % Plt Count 295 (150-400) X10^3/uL Neut % (Auto) 61.8 (50-75) % Lymph % (Auto) 31.1 (25-40) % [place] % (Auto) 5.1 (3-14) % Eos % (Auto) 1.2 L (2-4) % Baso % (Auto) 0.8 (0-2) % Neut # (Auto) 6200 (2632-3468) /uL Lymph # (Auto) 3100 (1665-1997) /uL [place] # (Auto) 500 (0-900) /uL Eos # (Auto) 100 (0-450) /uL Baso # (Auto) 100 (0-100) /uL Sodium 138 (137-145) mmol/L Potassium 4.6 (3.4-5.1) mmol/L Chloride 101 (98-107) mmol/L Carbon Dioxide 28 (22-32) mmol/L BUN 8 (7-17) mg/dL Creatinine 0.70 (0.52-1.04) mg/dL Estimated GFR > 60.0 (>60) mL/min BUN/Creatinine Ratio 11.4 (6-22) Glucose 90 (70-100) mg/dL Calcium 9.7 (8.4-10.2) mg/dL Total Bilirubin 0.4 (0.2-1.3) mg/dL AST 25 (14-36) IU/L ALT 24 (<35) IU/L Alkaline Phosphatase 83 (38-126) U/L Total Protein 8.1 (6.3-8.2) g/dL Albumin 4.6 (3.5-5.0) g/dL Globulin 3.5 (1.7-4.1) g/dL Albumin/Globulin Ratio 1.3 (1.0-2.8) Urine Color Yellow Urine Appearance Cloudy Urine pH 5.5 (4.5-8.0) Ur Specific [place] 1.015 (1.000-1.035) Urine Protein Negative (Negative) Urine Glucose (UA) Negative (Negative) g/dL Urine Ketones Negative (NEGATIVE) Urine Occult Blood 2+ H (Negative) Urine Nitrate Negative (Negative) Urine Bilirubin Negative (NEGATIVE) Urine Urobilinogen 0.2 (0.2) E.U./dL Ur Leukocyte Esterase 1+ H (NEGATIVE) Urine RBC 1-5/hpf (0-5/HPF) Urine WBC 5-10/hpf H (0-5/HPF) Ur Squamous Epith Cells 10-30 /hpf H D (0-5/HPF) Amorphous Sediment 1+ Urine Bacteria None seen (None) Ur Culture Indicated? Cult not indicated MDM Narrative Medical decision making narrative: 26-year-old female with history of headaches without diagnosis of migraines presents to the emergency department for worsening headache over the last 5 days now with photophobia, nausea and vision changes. Patient has been afebrile, denies any weakness, sensation changes, or URI symptoms. was negative, she was given 1 L of IV normal saline, Benadryl, Compazine, Zofran, Toradol, Percocet, sumatriptan, Tylenol, dexamethasone and finally felt relief after receiving the Compazine and sumatriptan. Discussed with patient to have her follow-up with her primary care provider in the next few days for another evaluation of this but in the meantime have opted to prescribe her a short cours e of a sumatriptan p.o. for migraine relief. Patient had been trying p.o. fluids, Benadryl, Tylenol, and ibuprofen at home without relief. Patient's vision changes improved and her pain went down to a 2/10 from an 8/10. Headache considerations include, but not limited to: Subarachnoid hemorrhage, but unlikely as patient denies sudden onset of pain, not worst of life, or neck pain. Meningitis considered, but thought unlikely given lack of Brudzinski's, Kernig's sign, altered mental status or fever. Giant cell arteritis considered, but thought unlikely given lack of unilateral findings, pain in rastafari, vision changes, HTN Emergency considered, but thought unlikely given normal vitals. Other serious diagnoses considered unlikely given lack of red flag findings such as sudden onset, increasing frequency, immunocompromise, systemic signs (fever, chills, stiff neck, or rash), focal neurologic findings, trauma, blood thinners, etc. Patient is appropriate and amenable to discharge home. Vital signs are stable on repeat examination is unremarkable. Patient has been informed of results. Patient has been given strict return to ER precautions for any new or worsening symptoms. Patient understands to follow up closely with outpatient providers as instructed. Patient understands plan and agrees to discharge home. All questions and concerns answered at this time. <Debby Altamirano, DO - Last Filed: 12/03/21 19:50> Lab Data Labs: Lab Results 12/03/21 12/03/21 12/03/21 Range/Units 12:39 12:39 12:40 WBC 10.0 (4.5-11.0) X10^3/uL RBC 4.77 (4.0-5.2) X10^6/uL Hgb 13.4 (12.0-16.0) g/dL Hct 40.2 (36-46) % MCV 84.3 (80-100) fL MCH 28.2 (26-34) PG MCHC 33.4 (30-36) % RDW 13.5 (11.6-14.8) % Plt Count 295 (150-400) X10^3/uL Neut % (Auto) 61.8 (50-75) % Lymph % (Auto) 31.1 (25-40) % [place] % (Auto) 5.1 (3-14) % Eos % (Auto) 1.2 L (2-4) % Baso % (Auto) 0.8 (0-2) % Neut # (Auto) 6200 (5992-5324) /uL Lymph # (Auto) 3100 (7119-1975) /uL [place] # (Auto) 500 (0-900) /uL Eos # (Auto) 100 (0-450) /uL Baso # (Auto) 100 (0-100) /uL Sodium 138 (137-145) mmol/L Potassium 4.6 (3.4-5.1) mmol/L Chloride 101 (98-107) mmol/L Carbon Dioxide 28 (22-32) mmol/L BUN 8 (7-17) mg/dL Creatinine 0.70 (0.52-1.04) mg/dL Estimated GFR > 60.0 (>60) mL/min BUN/Creatinine Ratio 11.4 (6-22) Glucose 90 (70-100) mg/dL Calcium 9.7 (8.4-10.2) mg/dL Total Bilirubin 0.4 (0.2-1.3) mg/dL AST 25 (14-36) IU/L ALT 24 (<35) IU/L Alkaline Phosphatase 83 (38-126) U/L Total Protein 8.1 (6.3-8.2) g/dL Albumin 4.6 (3.5-5.0) g/dL Globulin 3.5 (1.7-4.1) g/dL Albumin/Globulin Ratio 1.3 (1.0-2.8) Urine Color Yellow Urine Appearance Cloudy Urine pH 5.5 (4.5-8.0) Ur Specific [place] 1.015 (1.000-1.035) Urine Protein Negative (Negative) Urine Glucose (UA) Negative (Negative) g/dL Urine Ketones Negative (NEGATIVE) Urine Occult Blood 2+ H (Negative) Urine Nitrate Negative (Negative) Urine Bilirubin Negative (NEGATIVE) Urine Urobilinogen 0.2 (0.2) E.U./dL Ur Leukocyte Esterase 1+ H (NEGATIVE) Urine RBC 1-5/hpf (0-5/HPF) Urine WBC 5-10/hpf H (0-5/HPF) Ur Squamous Epith Cells 10-30 /hpf H D (0-5/HPF) Amorphous Sediment 1+ Urine Bacteria None seen (None) Ur Culture Indicated? Cult not indicated Discharge Plan Departure Patient Disposition: Home Clinical Impression: Migraine Qualifiers: Migraine type: unspecified Status migrainosus presence: without status migrainosus Intractability: not intractable Qualified Code(s): G43.909 - Migraine, unspecified, not intractable, without status migrainosus Instructions: DI for Migraine Activity Restrictions/Additional Instructions: *You have been diagnosed with a migraine of unknown etiology. Because you had a history of these complicated headaches in the past, I think it is onofre for you to follow-up with her primary care provider about this so that you can have ongoing check ins about your migraines. Your lab work overall is reassuring that there is not a dangerous infection we are missing, your electrolytes are within normal range and there were no pertinent findings on your labs. Have prescribed you sumatriptan in a pill form which he may take at the start migraine to help prevent it from escalating to this point. Do not exceed 4 doses in 24 hour period. If you can avoid taking any in the next 24 hours because you had a shot today that is ideal however if you had a take 1 those pills it would be okay. Please stay hydrated, do not take any ibuprofen or any additional NSAIDs today, I hope you feel better and please return if you develop any worsening of this, vision changes, or nausea and vomiting which gets worse. *What to do: *Please continue to take your regular medications as directed. [x ] New medication prescriptions sent to your pharmacy: [ [facility]] [ ] New medication written as a paper prescription [ ] No new medications given *Please follow up with your primary care provider in 2-3 days, call for an appointment. Let them know you were seen in the Emergency Department and that we ask that you be seen in follow up. We will electronically transmit a record of today's note if your PCP is in our system *If you do not have a primary care provider please contact the [facility] Resource line at [phone]. They will ask some questions about your medical history and help get you set up with a doctor in the community. *Return to Emergency Department if you should have any new, worsening or concerning symptoms, such as [fever greater than 101F, chills, worsening pain, persistent vomiting or other bothersome symptoms] Prescriptions: New sumatriptan succinate 50 mg tablet 50 mg PO Q2-4H PRN (Reason: migraine headache) Qty: 10 0RF Rx Instructions: do not exceed 4 doses per 24 hrs No Action norethindrone (contraceptive) 0.35 mg tablet 0.35 mg PO DAILY Qty: 28 4RF albuterol sulfate 90 mcg/actuation HFA aerosol inhaler 1 puff INHALATION Q4-6H PRN (Reason: asthma) Qty: 18 1RF albuterol sulfate [ProAir HFA] 90 mcg/actuation HFA aerosol inhaler 2 puff inhalation Q6H PRN (Reason: shortness of breath or wheezing) Qty: 8.5 0RF Referrals: Lai Dahl ARNP [Primary Care Provider] - <Debby Altamirano DO - Last Filed: 12/03/21 19:50> Cosign ED Attending Binta Attestation: I was immediately available in the department for consultation. Documentation has been reviewed. I agree with assessment and plan.
[2021-12-03 12:48] LABS: Add Manual Diff / Slide Review NO; Basophils Absolute Auto 100 /uL (0-100); Basophils Percent Auto 0.8 % (0-2); Eosinophils Absolute Auto 100 /uL (0-450); Eosinophils Percent Auto 1.2 % (2-4); Hematocrit 40.2 % (36-46); Hemoglobin 13.4 g/dL (12.0-16.0); Lymphocytes Absolute Auto 3100 /uL (1100-4500); Lymphocytes Percent Auto 31.1 % (25-40); Mean Corpuscular HGB Conc 33.4 % (30-36); Mean Corpuscular Hemoglobin 28.2 PG (26-34); Mean Corpuscular Volume 84.3 fL (80-100); Monocytes Absolute Auto 500 /uL (0-900); Monocytes Percent Auto 5.1 % (3-14); Neutrophils Absolute Auto 6200 /uL (1500-7000); Neutrophils Percent Auto 61.8 % (50-75); Platelet Count 295 X10^3/uL (150-400); Red Blood Cell Count 4.77 X10^6/uL (4.0-5.2); Red Cell Distribution Width 13.5 % (11.6-14.8)
[2021-12-03 12:51] LABS: Appearance Urine UA CLOUDY; Bilirubin Urine UA NEGATIVE (NEGATIVE); Color Urine UA YELLOW; Glucose Urine UA NEGATIVE (Negative); Ketones Urine UA NEGATIVE (NEGATIVE); Leukocyte Esterase Urine UA 1+ (NEGATIVE); Nitrite Urine UA NEGATIVE (Negative); Occult Blood Urine UA 2+ (Negative); Protein Urine UA NEGATIVE (Negative); Specific Gravity Urine UA 1.015 (1.000-1.035); Urobilinogen Urine UA 0.2 E.U./dL (0.2)
[2021-12-03 12:57] LABS: pH Urine UA 5.5 (4.5-8.0)
[2021-12-03 13:00] LABS: Alanine Aminotransferase 24 IU/L (<35); Albumin 4.6 g/dL (3.5-5.0); Albumin Globulin Ratio 1.3 (1.0-2.8); Alkaline Phosphatase 83 U/L (38-126); Aspartate Aminotransferase 25 IU/L (14-36); BUN Creatinine Ratio 11.4 (6-22); Bilirubin Total 0.4 mg/dL (0.2-1.3); Blood Urea Nitrogen 8 mg/dL (7-17); Calcium 9.7 mg/dL (8.4-10.2); Carbon Dioxide 28 mmol/L (22-32); Chloride 101 mmol/L (98-107); Estimated Glomerular Filt Rate > 60.0 mL/min (>60); Globulin 3.5 g/dL (1.7-4.1); Glucose 90 mg/dL (70-100); HEMOLYSIS < 15 (0-50); Potassium 4.6 mmol/L (3.4-5.1); Sodium 138 mmol/L (137-145); Total Protein 8.1 g/dL (6.3-8.2)
[2021-12-03 13:10] LABS: RBC Urine 1-5/HPF (0-5/HPF); Squamous Epithelial Cell Urine 10-30 /HPF (0-5/HPF); WBC Urine 5-10/HPF (0-5/HPF)
[2021-12-03 13:11] LABS: Amorphous Sediment Urine 1+; Bacteria Urine None Seen; Culture Indicated Urine Cult Not Indicated
[2021-12-03] MEDS: SODIUM CHLORIDE 0.9% 1,000 ML 1000 ML IV (13:53)
[2021-12-03] MEDS: diphenhydrAMINE 50 MG/ML VIAL 25 MG IV (13:54)
[2021-12-03] MEDS: ONDANSETRON 4 MG/2 ML INJ IV (13:54)
[2021-12-03] MEDS: DEXAMETHASONE 10 MG/ML VIAL IV (13:54)
[2021-12-03] MEDS: KETOROLAC 30 MG/ML VIAL 15 MG IV (14:09)
[2021-12-03] MEDS: ACETAMINOPHEN 325 MG TABLET 650 MG PO (15:05)
[2021-12-03] MEDS: PROCHLORPERAZINE 10 MG/2 ML VIAL IV (15:06)
[2021-12-03] MEDS: SUMAtriptan 6 MG/0.5 ML VIAL SUBCUT (15:06)
== END 2021-12-03 16:02 | disposition home or self-care (01) ==
PROVIDERS: Emergency Provider Nurse Practitioner Critical Care Medicine; PCP Nurse Practitioner Family
DX: G43.909 Migraine, unspecified, not intractable, without status migrainosus (principal)
CPT/HCPCS: 80053; 81001; 85025; 96361; 96372; 96374; 96375; 99284; J0780; J1100; J1200; J1885; J2405; J3030